=== PATIENT | female | born 1945 | race American Indian/Alaskan Native ===

== ENCOUNTER 2021-07-08 08:18 | Day surgery (SDC) | payer MEDICARE, OTHER ==
[~2021-07-08 08:18] MED LIST: SODIUM CHLORIDE 0.9% 1000 ML 1,000 ML IV SCH
[2021-07-08 09:46] LABS: Hematocrit 25.7 % (30.3-42.9); Hemoglobin 8.5 gm/dl (10.1-14.3); Mean Corpuscular HGB Conc 33 % (30-34); Mean Corpuscular Volume 95 fl (79-97); Platelet Count 181 K/mm3 (140-440); Red Blood Count 2.72 M/mm3 (3.65-5.03)
[2021-07-08 09:48] LABS: Red Cell Distribution Width 20.3 % (13.2-15.2)
[2021-07-08] MEDS ORDERED: propofoL 200 MG/20 ML VIAL IV ONE ×2 (09:54→09:55)
[2021-07-08] MEDS ORDERED: LIDOCAINE MPF (2%) 20 MG/1 ML VIAL 5 ML ONE (09:59)
--- NOTE | 2021-07-08 10:02 | Anesthesia Consultation ---
Anesthesia Consult and Med Hx Date of service: 07/08/21 - Airway Anesthetic Teeth Evaluation: Partials (upper and lower) ROM Head & Neck: Adequate Mental/Hyoid Distance: Adequate Mallampati Class: Class III Intubation Access Assessment: Possibly Difficult - Pre-Operative Health Status ASA Pre-Surgery Classification: ASA4 Proposed Anesthetic Plan: MAC - Pulmonary Hx Respiratory Symptoms: No COPD: Yes Home Oxygen Therapy: Yes (previously on home O2 but currently only uses while at HD) - Cardiovascular System Hx Hypertension: Yes Hx Heart Attack/AMI: No (hx CHF) Hx Percutaneous Transluminal Coronary Angioplasty (PTCA): No - Central Nervous System CVA: No - Endocrine Hx End Stage Renal Disease: Yes (last HD 07/07/21) Hx Liver Disease: No Hx Insulin Dependent Diabetes: Yes Hx Thyroid Disease: No - Hematic Hx Anemia: Yes - Other Systems Hx Obesity: No - Additional Comments Anesthesia Medical History Comments: No hx anesthetic complications. No signs/symptoms HF decompensation today. Reports that she was seen by quality assurance group leader prior to procedure and was given OK to proceed.
--- NOTE | 2021-07-08 10:02 | Anesthesia Day of Surgery ---
Anesthesia Day of Surgery - Day of Surgery Patient Examined: Yes Patient H&P Reviewed: Yes Patient is NPO: Yes
--- NOTE | 2021-07-08 10:45 | Short Stay Summary ---
Short Stay Documentation Date of service: 07/08/21 Narrative H&P: The patient is a 76 yo female her for diagnostic EGD for suspected UGI blood loss and screening colonoscopy due to hx of colon polyps in 2016. - History Past Medical History: diabetes, ESRD (On dialysis), heart failure, hypertension Past Surgical History: No surgical history, bowel surgery Social history: no significant social history - Allergies and Medications Current Medications: Allergies oxycodone Allergy (Verified 07/03/21 13:24) Unknown Home Medications Medication Instructions Recorded Confirmed Last Taken Type Aspirin [Adult Aspirin] 07/03/21 Unknown History AtorvaSTATin [Lipitor] 07/03/21 Unknown History Benzonatate [Tessalon Perles] 07/03/21 Unknown History Cyclopentolate 0.5% 07/03/21 Unknown History Fluticasone [Flonase] 07/03/21 Unknown History Gabapentin 07/03/21 Unknown History Levemir Flextouch 07/03/21 Unknown History NIFEdipine 07/03/21 Unknown History [place]-3 Fatty Acids/Fish Oil 07/03/21 Unknown History Phoslo 07/03/21 Unknown History ProAir HFA Inhaler 07/03/21 07/03/21 Unknown History Vitamin E 07/03/21 Unknown History Zinc Sulfate 07/03/21 Unknown History atenoloL 07/03/21 Unknown History Active Medications Sodium Chloride (Nacl 0.9% 1000 Ml) 1,000 mls @ 50 mls/hr IV DIRECT OLMAN - Physical exam General appearance: no acute distress, well-nourished Integumentary: no rash, no growths, no abnormal pigmentation HEENT: Atraumatic, PERRLA, EOMI, Mucous membr. moist/pink Lungs: Clear to auscultation, Normal air movement Breasts: deferred Heart: Regular rate, Normal S1, Normal S2, No murmurs Gastrointestinal: normoactive bowel sounds, no tenderness, no distended, no m asses, no guarding, no organomegaly, obese Female Genitourinary: deferred Rectal Exam: normal exam-external/orifice, no mass Extremities: no ischemia, pulses intact, pulses symmetrical, No edema, normal temperature, normal color, abnormal (left UE AV fistula) Neurological: Normal gait, Normal speech, Strength at 5/5 X4 ext, Normal tone, Sensation intact, Cranial nerves 3-12 NL - Brief post op/procedure progress note Date of procedure: 07/08/21 Procedure: see dictations Estimated blood loss: none Pathology: list (1. bxs of antral ulcer 2. transverse colon polyp 3. descending colon polyp.) Specimen disposition: to lab Condition: stable - Disposition Condition at discharge: Good Disposition: 01 HOME / SELF CARE / HOMELESS - Discharge Diagnoses (1) Anemia due to blood loss, chronic Status: Acute (2) History of colon polyps Status: Acute (3) ESRD (end stage renal disease) on dialysis Status: Acute Short Stay Discharge Plan Activity: other (no driving for 24 hours.) Weight Bearing Status: Weight Bear as Tolerated Diet: diabetic, renal Follow up with: DENISE CHENEY DO [Primary Care Provider] - 7 Days Prescriptions: Omeprazole 40 mg PO QAM 30 Days #30 capsule.
--- NOTE | 2021-07-08 10:54 | Operative Report ---
Operative Report Operative Report: Date of procedure: 07/08/2021 Preprocedure diagnosis: History of colon polyps Post procedure diagnosis: 1 cm pedunculated transverse colon polyp, 6 mm semisessile descending colon polyp. Mild diverticulosis. Status post right hemicolectomy. Procedure: Colonoscopy to the ileocecal anastomosis. Snare cautery polypectomy x2 Endoscopist: Dr. Nava Anesthesia: Monitored anesthesia care per anesthesia department Estimated blood loss: 0 Medications: Monitored anesthesia care. See separate report by anesthesia for details. After careful discussion of the nature and purpose of the procedure as well as details of the technique risks benefits and alternatives the patient gave consent. Please see recent history and physical from the office. The patient was placed in the left lateral decubitus position and medicated per anesthesia. A rectal exam was performed sphincter tone was normal there were no masses palpable. The [employer] 570 scope was passed transanally and advanced under continuous direct vision without difficulty to the ileocolonic anastomosis. The anastomosis appeared to be in the proximal transverse colon area. The colon was well prepared. There was a 1 cm pedunculated polyp present in the transverse colon which was removed with snare electrocautery without difficulty. The polyp was removed on the tip of the endoscope and then the scope was reintroduced back to the polyp site for further inspection of the distal colon. No bleeding was encountered. A 6 mm semisessile polyp was found in the descending colon which was removed with snare electrocautery and retrieved by suction through the endoscope channel. Scattered diverticula were noted in the descending and sigmoid colon which were otherwise normal. The rectum was normal on forward and retroflexed views. The procedure was well-tolerated overall and the patient was observed in recovery. Conclusions: #1. 1 cm transverse colon polyp #2. 6 mm descending colon polyp #3. Scattered left colon diverticula #4. Right hemicolectomy status. Plan: Await pathology. Follow-up colonoscopy as needed in light of her age unless there is advanced pathology. Signed electronically: Corey Nava M.D.
--- NOTE | 2021-07-08 10:57 | Operative Report ---
Operative Report Operative Report: Date of procedure: 07/08/2021 Procedure: Esophagogastroduodenoscopy with biopsies of an antral ulcer Preprocedure diagnosis: Anemia suspected to be from chronic blood loss. Post procedure diagnosis: 1 cm benign-appearing mid antral ulcer on the greater curvature. Endoscopist: Dr. Nava Anesthesia: Monitored anesthesia care per anesthesia department Medications: Propofol per anesthesia Estimated blood loss: Minimal After careful discussion of the nature and purpose of the procedure as well as details the technique risks benefits and alternatives consent was obtained. The patient was placed in the left lateral decubitus position and medicated per anesthesia. The tip of the [employer] EQ 570 video scope was passed per orum under direct vision into the esophagus and advanced into the stomach and descending duodenum. The descending duodenum the duodenal bulb and pylorus were symmetrical and normal. The scope was withdrawn into the stomach and the stomach then gently insufflated with air. The antrum was normal a 1 cm flat ulcer crater in the mid to lower third of the distal antrum. Biopsies were taken for histology. No significant bleeding was encountered. The stomach was further insufflated and the scope was then retroflexed and partially withdrawn. The cardia, fundus, and body of the stomach were within normal limits and easily distensible.The scope was then withdrawn in the forward position. The esophagogastric junction was at 38 cm. A small sliding hiatus hernia was noted. The esophageal body was normal throughout. The procedure was was well tolerated and the patient was observed in recovery. Impressions: 1 cm ulcer with benign features in the lower third of the antrum. Findings may account for the patient's anemia given dialysis and episodic anticoagulation for this purpose. Pathology pending. Small sliding hiatus hernia. Plan: Await pathology. Advised to withhold anticoagulation at dialysis tomorrow. Patient will call in 1 week for the pathology report. Begin omeprazole 40 mg daily. She may need therapy long-term Electronically signed: Corey Nava MD
--- NOTE | 2021-07-08 11:52 | Post Anesthesia Evaluation ---
- Post Anesthesia Evaluation Patient Participated: Yes Airway Patent: Yes Stable Respiratory Function: Yes Nausea/Vomiting: No Temp > 96.8F: Yes Pain Manageable: Yes Adequeate Hydration: Yes Anesthesia Complications: No
[2021-07-08 20:48] VITALS: BP 150/52
== END 2021-07-08 08:19 | disposition home or self-care (01) ==
LOC: GIO 08:18
PROVIDERS: ATTEND Internal Medicine Gastroenterology
DX: D50.0 Iron deficiency anemia secondary to blood loss (chronic) (principal); D12.3 Benign neoplasm of transverse colon; D12.4 Benign neoplasm of descending colon; K57.30 Diverticulosis of large intestine without perforation or abscess without bleeding; K63.89 Other specified diseases of intestine; K44.9 Diaphragmatic hernia without obstruction or gangrene; K29.50 Unspecified chronic gastritis without bleeding; K31.89 Other diseases of stomach and duodenum; J44.9 Chronic obstructive pulmonary disease, unspecified; I12.0 Hypertensive chronic kidney disease with stage 5 chronic kidney disease or end stage renal disease; N18.6 End stage renal disease; E11.22 Type 2 diabetes mellitus with diabetic chronic kidney disease; Z86.010 Personal history of colon polyps; Z79.84 Long term (current) use of oral hypoglycemic drugs; Z79.899 Other long term (current) drug therapy; Z98.890 Other specified postprocedural states; Z79.82 Long term (current) use of aspirin; Z88.8 Allergy status to other drugs, medicaments and biological substances
CPT/HCPCS: 36415; 43239; 45385; 82962; 85027; 88305; 88342; J2704; J7030

== ENCOUNTER 2021-11-10 14:52 | Inpatient (IN) | payer MEDICARE, OTHER ==
[2021-11-10] MEDS ORDERED: ACETAMINOPHEN 325 MG TAB PO ONE (15:23)
[2021-11-10] MEDS ORDERED: PANTOPRAZOLE 40 MG TAB PO ONE (15:23)
--- NOTE | 2021-11-10 15:23 | Emergency Department Report ---
ED General Adult HPI - General Chief complaint: GI Bleed Stated complaint: BLOOD IN STOOL PUI?: Yes Time Seen by Provider: 11/10/21 15:10 Source: patient, RN notes reviewed, old records reviewed Mode of arrival: Stretcher Limitations: No Limitations - History of Present Illness Initial comments: During the history and physical examination, I am chaperoned by Courtney Porter Patient is a 76-year-old female. She has a history of end-stage renal disease on hemodialysis. She is due for hemodialysis tomorrow. Her exhibit carpenter is Dr. Perry. Her biometrics analyst is Dr. Corey Metzger; she reports having had a colonoscopy within the past few months, reports having had polyps removed. She presents to the ER today with a complaint of left lower quadrant abdominal pain, and cramping. She believes that she is having bloody stool. She denies additional injuries and complaints. -: Gradual, hour(s) Location: abdomen Quality: aching Consistency: constant Improves with: rest Worsens with: medication, movement - Related Data Home Medications Medication Instructions Recorded Confirmed Last Taken AtorvaSTATin [Lipitor] 40 mg PO QHS 11/10/21 11/10/21 Unknown Calcium Acetate 667 mg PO DAILY 11/10/21 11/10/21 Unknown ISOSORBIDE MONOnitrate [Imdur ER] 60 mg PO QDAY 11/10/21 11/10/21 Unknown NIFEdipine [Nifedipine ER] 60 mg PO DAILY 11/10/21 11/10/21 Unknown Omeprazole 40 mg PO DAILY 11/10/21 11/10/21 Unknown Vitamin B Complex/Folic Acid [B 1 tab PO DAILY 11/10/21 11/10/21 Unknown Complex Formula #1 Tablet] Allergies Allergy/AdvReac Type Severity Reaction Status Date / Time oxycodone Allergy Unknown Verified 07/03/21 13:24 ED Review of Systems ROS: Stated complaint: BLOOD IN STOOL Other details as noted in HPI Constitutional: denies: fever Eyes: denies: eye discharge ENT: denies: epistaxis Respiratory: denies: cough Cardiovascular: denies: chest pain Gastrointestinal: abdominal pain, hematochezia Genitourinary: denies: dysuria Musculoskeletal: denies: back pain Neurological: weakness ED Past Medical Hx - Past Medical History Hx Hypertension: Yes Hx Heart Attack/AMI: No (hx CHF) Hx Liver Disease: No Hx COPD: Yes - Social History Smoking Status: Unknown if ever smoked - Medications Home Medications: Home Medications Medication Instructions Recorded Confirmed Last Taken Type AtorvaSTATin [Lipitor] 40 mg PO QHS 11/10/21 11/10/21 Unknown History Calcium Acetate 667 mg PO DAILY 11/10/21 11/10/21 Unknown History ISOSORBIDE MONOnitrate [Imdur ER] 60 mg PO QDAY 11/10/21 11/10/21 Unknown History NIFEdipine [Nifedipine ER] 60 mg PO DAILY 11/10/21 11/10/21 Unknown History Omeprazole 40 mg PO DAILY 11/10/21 11/10/21 Unknown History Vitamin B Complex/Folic Acid [B 1 tab PO DAILY 11/10/21 11/10/21 Unknown History Complex Formula #1 Tablet] ED Physical Exam - General Limitations: No Limitations General appearance: alert, in no apparent distress - Head Head exam: Present: atraumatic, normocephalic - Eye Eye exam: Present: EOMI. Absent: normal appearance (Cloudy cornea noted in the left eye), nystagmus - ENT ENT exam: Present: normal exam, normal orophraynx, mucous membranes moist, normal external ear exam - Neck Neck exam: Present: normal inspection, full ROM. Absent: tenderness, meningismus - Respiratory Respiratory exam: Present: normal lung sounds bilaterally. Absent: respiratory distress, wheezes, rales, rhonchi, stridor, decreased breath sounds - Cardiovascular Cardiovascular Exam: Present: regular rate, normal rhythm, normal heart sounds. Absent: bradycardia, tachycardia, irregular rhythm, systolic murmur, diastolic murmur, rubs, gallop - GI/Abdominal GI/Abdominal exam: Present: soft, tenderness, guarding. Absent: distended, rebound, rigid, pulsatile mass - Rectal Rectal exam: Present: normal inspection, normal rectal tone, other (Chaperoned by nurse Courtney Porter). Absent: bloody stool - Extremities Exam Extremities exam: Present: normal inspection, full ROM, other (2+ pulses noted in the bilateral upper and lower extremities. There is no palpable cord. negative Homans sign. Muscular compartments are soft. The pelvis is stable.). Absent: pedal edema, calf tenderness - Back Exam Back exam: Present: normal inspection. Absent: tenderness, CVA tenderness (R), CVA tenderness (L), paraspinal tenderness, vertebral tenderness - Neurological Exam Neurological exam: Present: alert, oriented X3, other (No facial droop. Tongue midline. Extraocular movements intact bilaterally. Facial sensation intact to light touch in V1, V2, V3 distribution bilaterally. 5 and a 5 strength in 4 extremities. Sensation intact to light touch in 4 extremities.) - Psychiatric Psychiatric exam: Present: normal affect, normal mood - Skin Skin exam: Present: warm, dry, intact, normal color, other (Left upper extremity fistula noted, without redness, pus or streaking. There is an appropriate thrill, and there is no tenderness.). Absent: rash ED Course Vital Signs 11/10/21 11/10/21 11/10/21 15:00 15:15 15:30 Temperature 98.6 F Pulse Rate 69 73 74 Respiratory 16 15 18 Rate Blood Pressure 144/44 168/54 168/54 Blood Pressure [Right] O2 Sat by Pulse 100 97 98 Oximetry 11/10/21 11/10/21 11/10/21 15:36 15:46 15:50 Temperature Pulse Rate 73 75 Respiratory 18 15 Rate Blood Pressure 168/54 Blood Pressure 168/54 [Right] O2 Sat by Pulse 100 92 100 Oximetry 11/10/21 11/10/21 11/10/21 16:00 16:16 16:32 Temperature Pulse Rate 74 76 71 Respiratory 17 20 Rate Blood Pressure 159/52 159/52 159/52 Blood Pressure [Right] O2 Sat by Pulse 96 86 97 Oximetry 11/10/21 11/10/21 11/10/21 16:46 17:00 17:16 Temperature Pulse Rate 76 74 74 Respiratory 15 17 18 Rate Blood Pressure 159/52 147/49 147/49 Blood Pressure [Right] O2 Sat by Pulse 93 96 96 Oximetry 11/10/21 11/10/21 17:30 17:46 Temperature Pulse Rate 75 73 Respiratory 18 13 Rate Blood Pressure 160/54 160/54 Blood Pressure [Right] O2 Sat by Pulse 91 79 L Oximetry - Reevaluation(s) Reevaluation #1: 11/10/21 17:45 Differential diagnosis, including but not limited to: Colitis, diverticulitis, perforated viscus, malignancy Assessment and plan: Elderly 76-year-old female who is on dialysis presenting w ith left lower quadrant abdominal pain, tenderness, found to have acute diverticulitis. Patient is relatively immune compromised, and elderly the age of 76, and is also found to have a white count of 17,000, likely secondary to her diverticulitis. Given advanced age and multiple medical comorbidities, have recommended admission to the medical service for supportive care, and antibiotics. Patient is agreeable to this plan of care. She is due for hemodialysis tomorrow. Have placed a page to her exhibit carpenter to arrange for hemodialysis. We will treat her with Levaquin and metronidazole. She was given acetaminophen for pain. She has no blood on my rectal examination. Contacted hematology lab, asked them to please results guaiac card that was sent out. 11/10/21 17:47 Anemia is chronic when compared to prior laboratory studies. This is likely anemia of chronic disease. 11/10/21 17:[address] Fulton - Consultations Consultation #1: 11/10/21 18:18 I discussed the patient's history, physical, laboratory studies imaging studies and clinical impression with covering nephrology, Dr. Davila. His group will follow in consultation and arrange for hemodialysis tomorrow ED Medical Decision Making - Lab Data Result diagrams: 11/10/21 15:36 11/10/21 15:36 Vital Signs 11/10/21 11/10/21 11/10/21 15:00 15:15 15:30 Temperature 98.6 F Pulse Rate 69 73 74 Respiratory 16 15 18 Rate Blood Pressure 144/44 168/54 168/54 Blood Pressure [Right] O2 Sat by Pulse 100 97 98 Oximetry 11/10/21 11/10/21 11/10/21 15:36 15:46 15:50 Temperature Pulse Rate 73 75 Respiratory 18 15 Rate Blood Pressure 168/54 Blood Pressure 168/54 [Right] O2 Sat by Pulse 100 92 100 Oximetry 11/10/21 11/10/21 11/10/21 16:00 16:16 16:32 Temperature Pulse Rate 74 76 71 Respiratory 17 20 Rate Blood Pressure 159/52 159/52 159/52 Blood Pressure [Right] O2 Sat by Pulse 96 86 97 Oximetry 11/10/21 16:46 Temperature Pulse Rate 76 Respiratory 15 Rate Blood Pressure 159/52 Blood Pressure [Right] O2 Sat by Pulse 93 Oximetry Lab Results 11/10/21 11/10/21 11/10/21 Range/Units 15:36 15:36 15:36 WBC 17.1 H (4.5-11.0) K/mm3 RBC 2.74 L (3.65-5.03) M/mm3 Hgb 8.7 L (10.1-14.3) gm/dl Hct 25.1 L (30.3-42.9) % MCV 92 (79-97) fl MCH 32 (28-32) pg MCHC 35 H (30-34) % RDW 19.5 H (13.2-15.2) % Plt Count 183 (140-440) K/mm3 [place] % (Auto) Account Services Representative PT 13.8 (12.2-14.9) Sec. INR 0.96 (0.87-1.13) APTT 38.8 H (24.2-36.6) Sec. Sodium 141 (137-145) mmol/L Potassium 3.9 (3.6-5.0) mmol/L Chloride 96.4 L (98-107) mmol/L Carbon Dioxide 28 (22-30) mmol/L Anion Gap 21 mmol/L BUN 38 H (7-17) mg/dL Creatinine 8.4 H (0.6-1.2) mg/dL Estimated GFR 6 ml/min BUN/Creatinine Ratio 5 % Glucose 90 (65-100) mg/dL Calcium 10.4 H (8.4-10.2) mg/dL Total Bilirubin 0.50 (0.1-1.2) mg/dL AST 17 (5-40) units/L ALT 12 (7-56) units/L Alkaline Phosphatase 102 (35-129) units/L Total Protein 7.1 (6.3-8.2) g/dL Albumin 4.6 (3.9-5) g/dL Albumin/Globulin Ratio 1.8 % - Radiology Data Radiology results: pending, report reviewed, image reviewed CT ABDOMEN AND PELVIS WITHOUT CONTRAST INDICATION / CLINICAL INFORMATION: Left- sided abdominal cramping, ESRD, history of GI. TECHNIQUE: Axial CT images were obtained through the abdomen and pelvis without IV contrast. All CT scans at this location are performed using CT dose reduction for ALARA by means of automated exposure control. COMPARISON: None available. FINDINGS: LOWER CHEST: Mild lower lobe bronchiectasis. AORTA / ARTERIES: Mild atherosclerotic calcification without acute abnormality. IVC / VEINS: No significant abnormali ty. LYMPH NODES: No significant adenopathy. COLON: Diverticular disease is noted of the sigmoid colon with peridiverticular inflammation. Post surgical change to the proximal colon. APPENDIX: Appendectomy. STOMACH / SMALL BOWEL: No significant abnormality. PERITONEUM: No free fluid. No free air. No fluid collection. LIVER: No significant abnormality. GALLBLADDER: Cholelithiasis. BILE DUCTS: No significant abnormality. PANCREAS: No significant abnormality. SPLEEN: No significant abnormality. ADRENALS: No significant abnormality. RIGHT KIDNEY / URETER: Atrophic appearing right kidney. Within the right kidney there is a 2.0 x 1.7 x 2.3 cm solid renal mass. LEFT KIDNEY / URETER: Punctate stone noted within the left kidney no hydronephrosis. URINARY BLADDER: No significant abnormality. REPRODUCTIVE ORGANS: Within the left adnexa there is a 4.4 cm lesion which demonstrates a focal calcification suggesting a dermoid cyst. Status post hysterectomy. Right adnexa is unremarkable.. SKELETAL SYSTEM: Scattered degeneration. ADDITIONAL FINDINGS: None. IMPRESSION: 1. Acute uncomplicated diverticulitis. 2. Left adnexal lesion suggesting a ovarian dermoid cyst. 3. Solid mass within the right kidney measuring up to 2.3 cm. Ultrasound can be obtained for further evaluation. 4. Other findings as above. Signer Name: Waldo Georges DO Signed: 11/10/2021 3:44 PM Workstation Name: [employer] Critical care attestation.: If time is entered above; I have spent that time in minutes in the direct care of this critically ill patient, excluding procedure time. ED Disposition Clinical Impression: ESRD (end stage renal disease) on dialysis, Acute diverticulitis Disposition: ADMITTED INPATIENT Is pt being admited?: Yes Does the pt Need Aspirin: No Condition: Stable Referrals: PRIMARY CARE, [Primary Care Provider] - 3-5 Days Forms: Accompanied Note
[2021-11-10 16:26] LABS: Hematocrit 25.1 % (30.3-42.9); Hemoglobin 8.7 gm/dl (10.1-14.3); Mean Corpuscular HGB Conc 35 % (30-34); Mean Corpuscular Volume 92 fl (79-97); Platelet Count 183 K/mm3 (140-440); Red Blood Count 2.74 M/mm3 (3.65-5.03); Red Cell Distribution Width 19.5 % (13.2-15.2)
[2021-11-10 16:40] LABS: INR 0.96 (0.87-1.13)
[2021-11-10 16:41] LABS: Partial Thromboplastin Time 38.8 Sec. (24.2-36.6)
[2021-11-10 16:47] LABS: Albumin 4.6 g/dL (3.9-5); Calcium 10.4 mg/dL (8.4-10.2)
--- NOTE | 2021-11-10 16:48 | Cat Scan Report ---
CT ABDOMEN AND PELVIS WITHOUT CONTRAST INDICATION / CLINICAL INFORMATION: Left-sided abdominal cramping, ESRD, history of GI. TECHNIQUE: Axial CT images were obtained through the abdomen and pelvis without IV contrast. All CT scans at this location are performed using CT dose reduction for ALARA by means of automated exposure control. COMPARISON: None available. FINDINGS: LOWER CHEST: Mild lower lobe bronchiectasis. AORTA / ARTERIES: Mild atherosclerotic calcification without acute abnormality. IVC / VEINS: No significant abnormality. LYMPH NODES: No significant adenopathy. COLON: Diverticular disease is noted of the sigmoid colon with peridiverticular inflammation. Post maya rgical change to the proximal colon. APPENDIX: Appendectomy. STOMACH / SMALL BOWEL: No significant abnormality. PERITONEUM: No free fluid. No free air. No fluid collection. LIVER: No significant abnormality. GALLBLADDER: Cholelithiasis. BILE DUCTS: No significant abnormality. PANCREAS: No significant abnormality. SPLEEN: No significant abnormality. ADRENALS: No significant abnormality. RIGHT KIDNEY / URETER: Atrophic appearing right kidney. Within the right kidney there is a 2.0 x 1.7 x 2.3 cm solid renal mass. LEFT KIDNEY / URETER: Punctate stone noted within the left kidney no hydronephrosis. URINARY BLADDER: No significant abnormality. REPRODUCTIVE ORGANS: Within the left adnexa there is a 4.4 cm lesion which demonstrates a focal calci fication suggesting a dermoid cyst. Status post hysterectomy. Right adnexa is unremarkable.. SKELETAL SYSTEM: Scattered degeneration. ADDITIONAL FINDINGS: None. IMPRESSION: 1. Acute uncomplicated diverticulitis. 2. Left adnexal lesion suggesting a ovarian dermoid cyst. 3. Solid mass within the right kidney measuring up to 2.3 cm. Ultrasound can be obtained for further evaluation. 4. Other findings as above. Signer Name: Waldo Georges DO Signed: 11/10/2021 4:44 PM Workstation Name: [id number]
[2021-11-10] MEDS ORDERED: metroNIDAZOLE 500 MG TAB PO ONE (17:37)
[2021-11-10] MEDS ORDERED: levoFLOXacin 500 MG TAB PO ONE (17:37)
[2021-11-10 18:18] LABS: Basophils % (Manual) 0 % (0.0-1.8); Total Cells Counted 100
[2021-11-10 18:19] LABS: RBC Morphology Normal
--- NOTE | 2021-11-10 18:27 | History and Physical Report ---
History of Present Illness Chief complaint: My stomach hurts and I have blood when I go to the bathroom History of present illness: 76 YO Female with HTN, GERD, HLD, ESRD on HD(T,R,Sa) presents ED for evaluation. Patient reports "my stomach hurts and I have some blood in my stool". Patient states that she has experienced crampy abdominal pain over the past 1 week with persistent and intermittent symptoms over the same timeframe. Patient also reports 2 episodes of blood in her stool over the past 1 week. Patient transported to [facility] via private vehicle for further care and evaluation of the aforementioned symptoms. The patient was seen and evaluated in the emergency department. All lab and imaging studies reviewed. Patient underwent CT scan of the abdomen and pelvis and was found to have evidence of acute diverticulitis complicated by sepsis. Patient admitted to medical floor and initiated on sepsis protocol. Patient denies fever, chills, chest pain, palpitation, productive cough, skin rash, recent contact, known exposure to COVID-19. No prior admission for review. All medication listed at time of admission has been reconciled. Advanced care planning conducted in ED. Nephrology team consulted in ED for dialysis. Past History Past Medical History: ESRD, GERD, hypertension, hyperlipidemia Past Surgical History: Other (Dialysis access) Social history: , lives with family. denies: smoking, alcohol abuse, prescription drug abuse Family history: hypertension Medications and Allergies Allergies Allergy/AdvReac Type Severity Reaction Status Date / Time oxycodone Allergy Unknown Verified 07/03/21 13:24 Home Medications Medication Instructions Recorded Confirmed Last Taken Type AtorvaSTATin [Lipitor] 40 mg PO QHS 11/10/21 11/10/21 Unknown History Calcium Acetate 667 mg PO DAILY 11/10/21 11/10/21 Unknown History ISOSORBIDE MONOnitrate [Imdur ER] 60 mg PO QDAY 11/10/21 11/10/21 Unknown History NIFEdipine [Nifedipine ER] 60 mg PO DAILY 11/10/21 11/10/21 Unknown History Omeprazole 40 mg PO DAILY 11/10/21 11/10/21 Unknown History Vitamin B Complex/Folic Acid [B 1 tab PO DAILY 11/10/21 11/10/21 Unknown History Complex Formula #1 Tablet] Review of Systems Constitutional: no weight loss, no weight gain, no fever, no chills Ears, nose, mouth and throat: no ear pain, no tinnitis, no nose pain, no nasal congestion, no nasal discharge Breasts: no change in shape, no swelling, no mass Cardiovascular: no chest pain, no orthopnea, no palpitations, no rapid/irregular heart beat, no edema Respiratory: no cough, no hemoptysis Gastrointestinal: abdominal pain, BRBPR, no nausea, no vomiting, no diarrhea Genitourinary Female: no pelvic pain, no flank pain, no dysuria, no urinary frequency, no urgency Rectal: no pain, no incontinence, no bleeding Musculoskeletal: no neck stiffness, no low back pain, no leg numbness/tingling, no redness of joints Integumentary: no rash, no pruritis, no wounds, no jaundice Neurological: no head injury, no weakness, no numbness, no seizures, no tremors Psychiatric: no anxiety, no change in sleep habits, no hypersomnia, no change in appetite, no change in libido Endocrine: no cold intolerance, no heat intolerance, no excessive thirst, no polydipsia Hematologic/Lymphatic: no easy bruising Allergic/Immunologic: no urticaria Exam - Constitutional Vitals: Temp Pulse Resp BP Pulse Ox 98.6 F 73 13 160/54 79 L 11/10/21 15:00 11/10/21 17:46 11/10/21 17:46 11/10/21 17:46 11/10/21 17:46 General appearance: Present: mild distress - EENT Eyes: Present: PERRL ENT: hearing intact, clear oral mucosa - Neck Neck: Present: supple, normal ROM - Respiratory Respiratory effort: normal Respiratory: bilateral: CTA - Cardiovascular Heart Sounds: Present: S1 & S2. Absent: rub, click - Extremities Extremities: pulses symmetrical, No edema Peripheral Pulses: within normal limits - Abdominal General gastrointestinal: Present: soft, non-tender, non-distended, normal bowel sounds Female genitourinary: Present: normal - Integumentary Integumentary: Present: clear, warm, dry - Musculoskeletal Musculoskeletal: gait normal, strength equal bilaterally - Psychiatric Psychiatric: appropriate mood/affect, intact judgment & insight - Neurologic Neurologic: CNII-XII intact, moves all extremities Results - Labs CBC & Chem 7: 11/10/21 15:36 11/10/21 15:36 Labs: Abnormal lab results 11/10/21 11/10/21 11/10/21 Range/Units 15:36 15:36 15:36 WBC 17.1 H (4.5-11.0) K/mm3 RBC 2.74 L (3.65-5.03) M/mm3 Hgb 8.7 L (10.1-14.3) gm/dl Hct 25.1 L (30.3-42.9) % MCHC 35 H (30-34) % RDW 19.5 H (13.2-15.2) % Monocytes % (Manual) 26.0 H (0.0-7.3) % Seg Neutrophils # Man 10.1 H (1.8-7.7) K/mm3 Monocytes # (Manual) 4.4 H (0.0-0.8) K/mm3 APTT 38.8 H (24.2-36.6) Sec. Chloride 96.4 L (98-107) mmol/L BUN 38 H (7-17) mg/dL Creatinine 8.4 H (0.6-1.2) mg/dL Calcium 10.4 H (8.4-10.2) mg/dL Assessment and Plan - Patient Problems (1) Sepsis Current Visit: Yes Status: Acute Plan to address problem: Sepsis protocol: CT scan abdomen and pelvis, IV fluid resuscitation therapy, IV antibiotic therapy, serial lactic acid level, maintain mean arterial pressure greater than or equal to 65, blood culture, (2) GERD (gastroesophageal reflux disease) Current Visit: Yes Status: Acute Qualifiers: Esophagitis presence: without esophagitis Qualified Code(s): K21.9 - Gastro-esophageal reflux disease without esophagitis Plan to address problem: PPI therapy, supportive care (3) Acute diverticulitis Current Visit: Yes Status: Acute Plan to address problem: CT scan abdomen pelvis, IV antibiotic therapy, supportive care, pain control. Serial abdominal exam. (4) ESRD (end stage renal disease) on dialysis Current Visit: Yes Status: Acute Plan to address problem: Nephrology team consulted in ED, dialysis as per renal team. (5) GI bleed Current Visit: Yes Status: Acute Plan to address problem: IV PPI therapy, supportive care. Patient found to be Hemoccult positive in the emergency department. Suspected secondary to acute diverticulitis. Supportive care, pain control. CT scan abdomen pelvis. Hemoglobin stable at this time. (6) Anemia due to blood loss, chronic Current Visit: No Status: Acute Plan to address problem: Hemoglobin stable. Monitor CBC. Repeat CBC in a.m. No transfusion at this time. Will consider blood transfusion if patient hemoglobin drops greater than 2 g in 24-hour period. (7) DVT prophylaxis Current Visit: Yes Status: Acute Plan to address problem: SCD to bilateral lower extremities while in bed, (8) Advance care planning Current Visit: Yes Status: Acute Plan to address problem: Disease education done, care plan discussed, diagnoses discussed, prognosis dis cussed, patient is full code. Patient knowledges understanding and agreement with care plan, +30 minutes.
[2021-11-10] MEDS ORDERED: ACETAMINOPHEN 325 MG TAB PO PRN ×2 (18:28)
[2021-11-10] MEDS ORDERED: MORPHINE 2 MG/1 ML INJ IV PRN (18:28)
[2021-11-10] MEDS ORDERED: SODIUM CHLORIDE 0.9% 1000 ML IV SOLN IV ONE (18:28)
[2021-11-10] MEDS ORDERED: ONDANSETRON 4 MG/2 ML INJ IV PRN (18:28)
[2021-11-10] MEDS ORDERED: HYDROmorphone 1 MG/1 ML INJ IV PRN ×2 (18:28)
[2021-11-10] MEDS ORDERED: ALBUTEROL 2.5 MG/3 ML NEBU IH PRN (18:28)
[2021-11-10] MEDS ORDERED: CEFEPIME/NS 2 GM/100 ML 2 GM/100 ML BAG IV SCH (19:00)
[2021-11-10] MEDS: metroNIDAZOLE/NS 500 MG/100 ML 500 MG/100 ML BAG IV SCH (19:38)
[2021-11-10] MEDS: CEFEPIME/NS 1 GM/100 ML 1 GM/100 ML BAG IV SCH (19:40)
[2021-11-10] MEDS ORDERED: SODIUM CHLORIDE 0.9% 100 ML IV PRN (23:18)
[2021-11-10] MEDS ORDERED: EPOETIN ALFA-EPBX 10,000 UNIT/1 ML VIAL IV PRN (23:19)
--- NOTE | 2021-11-10 23:19 | Event Note ---
Date: 11/10/21 Appreciate nephrology consult- patient receives HD for ESRD at [facility] . Official consult will follow, reviewed labs/vitals/notes, plan for HD tomorrow if stable
[2021-11-10] MEDS: PANTOPRAZOLE 40 MG INJ IV SCH (23:45)
[2021-11-11] MEDS: metroNIDAZOLE/NS 500 MG/100 ML 500 MG/100 ML BAG IV SCH ×3 (03:14→18:11)
[2021-11-11 07:58] LABS: Hematocrit 24.9 % (30.3-42.9); Hemoglobin 8.5 gm/dl (10.1-14.3); Mean Corpuscular HGB Conc 34 % (30-34); Mean Corpuscular Volume 92 fl (79-97); Platelet Count 158 K/mm3 (140-440); Red Cell Distribution Width 19.5 % (13.2-15.2)
[2021-11-11 08:17] LABS: Calcium 9.8 mg/dL (8.4-10.2)
--- NOTE | 2021-11-11 08:40 | Consultation ---
History of Present Illness - Reason for Consult Consult date: 11/11/21 end stage renal disease - History of Present Illness Mrs. Baron is a 76yo w/ ESRD on HD TTS who presented to ED upon direction of nephrology. Patient stopped by [facility] on Nov 10 to report a 1 day history of abdominal pain - lower quadrant, cramping pain followed by onset of BRBPR. Patient was advised to go to the ED for evaluation. In the ED, labs were collected and notable for Hb 8.7. Outpatient labs notable for Hb 9.4 on Oct 30. Patient receives HD TTS. Nephrology consulted for management of ESRD. Past History Past Medical History: ESRD, GERD, hypertension, hyperlipidemia Past Surgical History: Other (Dialysis access) Social history: , lives with family. denies: smoking, alcohol abuse, prescription drug abuse Family history: hypertension Medications and Allergies Allergies Allergy/AdvReac Type Severity Reaction Status Date / Time oxycodone Allergy Unknown Verified 07/03/21 13:24 Home Medications Medication Instructions Recorded Confirmed Last Taken Type AtorvaSTATin [Lipitor] 40 mg PO QHS 11/10/21 11/10/21 Unknown History Calcium Acetate 667 mg PO DAILY 11/10/21 11/10/21 Unknown History ISOSORBIDE MONOnitrate [Imdur ER] 60 mg PO QDAY 11/10/21 11/10/21 Unknown History NIFEdipine [Nifedipine ER] 60 mg PO DAILY 11/10/21 11/10/21 Unknown History Omeprazole 40 mg PO DAILY 11/10/21 11/10/21 Unknown History Vitamin B Complex/Folic Acid [B 1 tab PO DAILY 11/10/21 11/10/21 Unknown History Complex Formula #1 Tablet] Active Meds: Active Medications Acetaminophen (Acetaminophen 325 Mg Tab) 650 mg PO Q4H PRN PRN Reason: Pain MILD(1-3)/Fever >100.5/NICHOLSON Albuterol (Albuterol 2.5 Mg/3 Ml Nebu) 2.5 mg IH Q4HRT PRN PRN Reason: Shortness Of Breath Atorvastatin Calcium (Atorvastatin 40 Mg Tab) 40 mg PO QHS [facility] Last Admin: 11/10/21 23:50 Dose: Not Given Calcium Acetate (Calcium Acetate 667 Mg Cap) 667 mg PO DAILY@0800 [facility] Epoetin Aroldo-epbx (Epoetin Aroldo-Epbx 10,000 Unit/1 Ml Vial) 10,000 unit IV NAEEM PRN PRN Reason: hemodialysis Hydromorphone HCl (Hydromorphone 1 Mg/1 Ml Inj) 0.25 mg IV Q4H PRN PRN Reason: Pain, Moderate (4-6) Hydromorphone HCl (Hydromorphone 1 Mg/1 Ml Inj) 0.5 mg IV Q6H PRN PRN Reason: Pain , Severe (7-10) Last Admin: 11/11/21 00:20 Dose: 0.5 mg Metronidazole (Flagyl 500 Mg/100 Ml) 500 mg in 100 mls @ 100 mls/hr IV Q8H [facility]; Protocol Stop: 11/17/21 18:59 Last Admin: 11/11/21 03:14 Dose: 100 mls/hr Cefepime HCl (Cefepime/Ns 1 Gm/100 Ml) 1 gm in 100 mls @ 200 mls/hr IV Q24H [facility] Stop: 11/16/21 23:59 Last Admin: 11/10/21 19:40 Dose: Not Given Sodium Chloride (Nacl 0.9%) 100 mls @ 999 mls/hr IV NAEEM PRN PRN Reason: Hypotension Isosorbide Mononitrate (Isosorbide Mononitrate Er 60 Mg Tab) 60 mg PO QDAY [facility] Morphine Sulfate (Morphine 2 Mg/1 Ml Inj) 2 mg IV Q6H PRN PRN Reason: Pain, Moderate (4-6) Nifedipine (Nifedipine Xl 60 Mg Tab) 60 mg PO QDAY [facility] Ondansetron HCl (Ondansetron 4 Mg/2 Ml Inj) 4 mg IV Q8H PRN PRN Reason: Nausea And Vomiting Last Admin: 11/11/21 04:41 Dose: 4 mg Pantoprazole Sodium (Pantoprazole 40 Mg Inj) 40 mg IV BID [facility] Last Admin: 11/10/21 23:45 Dose: 40 mg Sodium Chloride (Sodium Chloride 0.9% 10 Ml Flush Syringe) 10 ml IV BID [facility] Last Admin: 11/10/21 23:50 Dose: 10 ml Sodium Chloride (Sodium Chloride 0.9% 10 Ml Flush Syringe) 10 ml IV PRN PRN PRN Reason: LINE FLUSH Vitamin B Complex/Vitamin C (B Complex W/Vitamin C Tab) 1 each PO QDAY [facility] Review of Systems All systems: negative Exam - Vital Signs Vital signs: Vital Signs Temp Pulse Resp BP Pulse Ox 98.6 F 69 16 144/44 100 11/10/21 15:00 11/10/21 15:00 11/10/21 15:00 11/10/21 15:00 11/10/21 15:00 - General Appearance General appearance: well-developed, well-nourished EENT: ATNC Respiratory: Clear to Ascultation Heart: regular, S1S2 Gastrointestinal: Present: normal, tenderness. Absent: distended Integumentary: no rash, warm and dry Neurologic: alert and oriented x3 Psychiatric: cooperative Results - Lab Results 11/11/21 07:28 11/11/21 07:22 Most recent lab results Calcium 9.8 mg/dL (8.4-10.2) 11/11/21 07:22 Assessment and Plan Impression: * End stage renal disease * GI bleed --Colonoscopy (Jun 2021 - Dr. Nava): 1 cm pedunculated transverse colon polyp, 6 mm semisessile descending colon polyp. Mild diverticulosis. Status post right hemicolectomy. * Diverticulitis * Anemia secondary to acute blood loss vs ESRD * Hypertension * Congestive heart failure (followed by [facility]) * Secondary hyperparathyroidism Plan: * Hemodialysis today - UF as tolerated * Abx per primary team - f/u blood cultures * Transfuse pRBC prn * GI consultation pending * Diet per GI * Dose medications for renal function * AM labs
[2021-11-11 08:41] LABS: Anisocytosis 1+; Basophils % (Manual) 0 % (0.0-1.8); Platelet Estimate Consistent w Auto; Total Cells Counted 100
--- NOTE | 2021-11-11 08:44 | Progress Note ---
Assessment and Plan Assessment and plan: 76 YO Female with HTN, GERD, HLD, ESRD on HD(T,R,Sa) presents ED for evaluation of GI bleed. Patient states that she has experienced crampy abdominal pain over the past 1 week with persistent and intermittent symptoms over the same timeframe. Patient also reports 2 episodes of blood in her stool over the past 1 week. The patient was seen and evaluated in the emergency department. All lab and imaging studies reviewed. Patient underwent CT scan of the abdomen and pelvis and was found to have evidence of acute diverticulitis complicated by sepsis. GI bleed Sepsis Acute diverticulitis ESRD Right kidney mass Ovarian dermoid cyst 11/11/2021. Patient will be continued on IV antibiotics. Await GI consultation. Patient reported rectal bleeding x1 last night. H&H remained stable. We will check renal ultrasound to further evaluate kidney mass. History Interval history: No new issues Hospitalist Physical - Constitutional Vitals: Temp Pulse Resp BP Pulse Ox 97.8 F 69 20 170/49 99 11/11/21 05:52 11/11/21 05:52 11/11/21 05:52 11/11/21 05:52 11/11/21 07:36 General appearance: Present: mild distress - EENT Eyes: Present: PERRL, EOM intact ENT: hearing intact, clear oral mucosa, dentition normal - Neck Neck: Present: supple, normal ROM - Respiratory Respiratory effort: normal Respiratory: bilateral: CTA - Cardiovascular Rhythm: regular Heart Sounds: Present: S1 & S2. Absent: gallop, rub - Extremities Extremities: no ischemia, No edema, Full ROM - Abdominal General gastrointestinal: soft, non-tender, non-distended, normal bowel sounds - Integumentary Integumentary: Present: clear, warm, dry - Neurologic Neurologic: CNII-XII intact, moves all extremities Results - Labs CBC & Chem 7: 11/11/21 07:28 11/11/21 07:22 Labs: Laboratory Last Values WBC 15.0 K/mm3 (4.5-11.0) H 11/11/21 07:28 RBC 2.70 M/mm3 (3.65-5.03) L 11/11/21 07:28 Hgb 8.5 gm/dl (10.1-14.3) L 11/11/21 07:28 Hct 24.9 % (30.3-42.9) L 11/11/21 07:28 MCV 92 fl (79-97) 11/11/21 07:28 MCH 31 pg (28-32) 11/11/21 07:28 MCHC 34 % (30-34) 11/11/21 07:28 RDW 19.5 % (13.2-15.2) H 11/11/21 07:28 Plt Count 158 K/mm3 (140-440) 11/11/21 07:28 [place] % (Auto) [employer] Specialist 11/11/21 07:28 Add Manual Diff Complete 11/10/21 15:36 Total Counted 100 11/10/21 15:36 Seg Neuts % (Manual) 59.0 % (40.0-70.0) 11/10/21 15:36 Band Neutrophils % 0 % 11/10/21 15:36 Lymphocytes % (Manual) 14.0 % (13.4-35.0) 11/10/21 15:36 Reactive Lymphs % (Man) 0 % 11/10/21 15:36 Monocytes % (Manual) 26.0 % (0.0-7.3) H 11/10/21 15:36 Eosinophils % (Manual) 1.0 % (0.0-4.3) 11/10/21 15:36 Basophils % (Manual) 0 % (0.0-1.8) 11/10/21 15:36 Metamyelocytes % 0 % 11/10/21 15:36 Myelocytes % 0 % 11/10/21 15:36 Promyelocytes % 0 % 11/10/21 15:36 Blast Cells % 0 % 11/10/21 15:36 Nucleated RBC % Not Reportable 11/10/21 15:36 Seg Neutrophils # Man 10.1 K/mm3 (1.8-7.7) H 11/10/21 15:36 Band Neutrophils # 0.0 K/mm3 11/10/21 15:36 Lymphocytes # (Manual) 2.4 K/mm3 (1.2-5.4) 11/10/21 15:36 Abs React Lymphs (Man) 0.0 K/mm3 11/10/21 15:36 Monocytes # (Manual) 4.4 K/mm3 (0.0-0.8) H 11/10/21 15:36 Eosinophils # (Manual) 0.2 K/mm3 (0.0-0.4) 11/10/21 15:36 Basophils # (Manual) 0.0 K/mm3 (0.0-0.1) 11/10/21 15:36 Metamyelocytes # 0.0 K/mm3 11/10/21 15:36 Myelocytes # 0.0 K/mm3 11/10/21 15:36 Promyelocytes # 0.0 K/mm3 11/10/21 15:36 Blast Cells # 0.0 K/mm3 11/10/21 15:36 WBC Morphology Not Reportable 11/10/21 15:36 Hypersegmented Neuts Not Reportable 11/10/21 15:36 Hyposegmented Neuts Not Reportable 11/10/21 15:36 Hypogranular Neuts Not Reportable 11/10/21 15:36 Smudge Cells Not Reportable 11/10/21 15:36 Toxic Granulation Not Reportable 11/10/21 15:36 Toxic Vacuolation Not Reportable 11/10/21 15:36 Dohle Bodies Not Reportable 11/10/21 15:36 Pelger-Huet Anomaly Not Reportable 11/10/21 15:36 Caitie Rods Not Reportable 11/10/21 15:36 Platelet Estimate Not Reportable 11/10/21 15:36 Clumped Platelets Not Reportable 11/10/21 15:36 Plt Clumps, EDTA Not Reportable 11/10/21 15:36 Large Platelets Not Reportable 11/10/21 15:36 Giant Platelets Not Reportable 11/10/21 15:36 Platelet Satelliting Not Reportable 11/10/21 15:36 Plt Morphology Comment Not Reportable 11/10/21 15:36 RBC Morphology Normal 11/10/21 15:36 Dimorphic RBCs Not Reportable 11/10/21 15:36 Polychromasia Not Reportable 11/10/21 15:36 Hypochromasia Not Reportable 11/10/21 15:36 Poikilocytosis Not Reportable 11/10/21 15:36 Anisocytosis Not Reportable 11/10/21 15:36 Microcytosis Not Reportable 11/10/21 15:36 Macrocytosis Not Reportable 11/10/21 15:36 Spherocytes Not Reportable 11/10/21 15:36 Pappenheimer Bodies Not Reportable 11/10/21 15:36 Sickle Cells Not Reportable 11/10/21 15:36 Target Cells Not Reportable 11/10/21 15:36 Tear Drop Cells Not Reportable 11/10/21 15:36 Ovalocytes Not Reportable 11/10/21 15:36 Helmet Cells Not Reportable 11/10/21 15:36 [place] Bodies Not Reportable 11/10/21 15:36 [place] Rings Not Reportable 11/10/21 15:36 Ballard Cells Not Reportable 11/10/21 15:36 Bite Cells Not Reportable 11/10/21 15:36 Crenated Cell Not Reportable 11/10/21 15:36 Elliptocytes Not Reportable 11/10/21 15:36 Acanthocytes (Spur) Not Reportable 11/10/21 15:36 Rouleaux Not Reportable 11/10/21 15:36 Hemoglobin C Crystals Not Reportable 11/10/21 15:36 Schistocytes Not Reportable 11/10/21 15:36 Malaria parasites Not Reportable 11/10/21 15:36 Jorge Bodies Not Reportable 11/10/21 15:36 Hem Pathologist Commnt No 11/10/21 15:36 PT 13.8 Sec. (12.2-14.9) 11/10/21 15:36 INR 0.96 (0.87-1.13) 11/10/21 15:36 APTT 38.8 Sec. (24.2-36.6) H 11/10/21 15:36 Sodium 136 mmol/L (137-145) L 11/11/21 07:22 Potassium 4.2 mmol/L (3.6-5.0) 11/11/21 07:22 Chloride 94.0 mmol/L (98-107) L 11/11/21 07:22 Carbon Dioxide 27 mmol/L (22-30) 11/11/21 07:22 Anion Gap 19 mmol/L 11/11/21 07:22 BUN 43 mg/dL (7-17) H 11/11/21 07:22 Creatinine 9.4 mg/dL (0.6-1.2) H 11/11/21 07:22 Estimated GFR 5 ml/min 11/11/21 07:22 BUN/Creatinine Ratio 5 % 11/11/21 07:22 Glucose 118 mg/dL (65-100) H 11/11/21 07:22 POC Glucose 106 mg/dL (70-105) H 11/11/21 07:43 Lactic Acid 0.70 mmol/L (0.7-2.0) 11/11/21 07:29 Calcium 9.8 mg/dL (8.4-10.2) 11/11/21 07:22 Total Bilirubin 0.50 mg/dL (0.1-1.2) 11/10/21 15:36 AST 17 units/L (5-40) 11/10/21 15:36 ALT 12 units/L (7-56) 11/10/21 15:36 Alkaline Phosphatase 102 units/L (35-129) 11/10/21 15:36 Total Protein 7.1 g/dL (6.3-8.2) 11/10/21 15:36 Albumin 4.6 g/dL (3.9-5) 11/10/21 15:36 Albumin/Globulin Ratio 1.8 % 11/10/21 15:36 Blood Type O POSITIVE 11/10/21 15:36 Antibody Screen Positive 11/10/21 15:36 MOLLY Antibody Screen Negative 11/10/21 15:36 Antibody Identification Negative 11/10/21 15:36 Direct Antiglob Test Positive 11/10/21 15:36 KATHLEEN, Poly Interpret Positive 11/10/21 15:36 Microbiology: Microbiology 11/10/21 21:18 Peripheral/Venous Blood Culture - Preliminary Culture in Progress 11/10/21 21:18 Peripheral/Venous Blood Culture - Preliminary Culture in Progress 11/10/21 15:22 Stool - Stool Aspirate Stool Occult Blood (TERRY) - Final [place]/IV: Voiding Method Toilet Active Medications - Current Medications Current Medications: Generic Name Dose Route Start Last Admin Trade Name Freq PRN Reason Stop Dose Admin Acetaminophen 650 mg 11/10/21 18:28 Acetaminophen 325 Mg Tab PO Q4H PRN Pain MILD(1-3)/Fever >100.5/NICHOLSON Albuterol 2.5 mg 11/10/21 18:28 Albuterol 2.5 Mg/3 Ml Nebu IH Q4HRT PRN Shortness Of Breath Atorvastatin Calcium 40 mg 11/10/21 22:00 11/10/21 23:50 Atorvastatin 40 Mg Tab PO Not Given QHS [facility] Calcium Acetate 667 mg 11/11/21 08:00 Calcium Acetate 667 Mg Cap PO DAILY@0800 [facility] Epoetin Aroldo-epbx 10,000 unit 11/10/21 23:19 Epoetin Aroldo-Epbx 10,000 Unit/1 Ml Vial IV NAEEM PRN hemodialysis Hydromorphone HCl 0.25 mg 11/10/21 18:28 Hydromorphone 1 Mg/1 Ml Inj IV Q4H PRN Pain, Moderate (4-6) Hydromorphone HCl 0.5 mg 11/10/21 18:28 11/11/21 00:20 Hydromorphone 1 Mg/1 Ml Inj IV 0.5 mg Q6H PRN Administration Pain , Severe (7-10) Metronidazole 500 mg in 100 mls @ 100 mls/hr 11/10/21 19:00 11/11/21 03:14 Flagyl 500 Mg/100 Ml IV 11/17/21 18:59 100 mls/hr Q8H [facility] Administration Protocol Cefepime HCl 1 gm in 100 mls @ 200 mls/hr 11/10/21 20:00 11/10/21 19:40 Cefepime/Ns 1 Gm/100 Ml IV 11/16/21 23:59 Not Given Q24H [facility] Sodium Chloride 100 mls @ 999 mls/hr 11/10/21 23:18 Nacl 0.9% IV NAEEM PRN Hypotension Isosorbide Mononitrate 60 mg 11/11/21 10:00 Isosorbide Mononitrate Er 60 Mg Tab PO QDAY [facility] Morphine Sulfate 2 mg 11/10/21 18:28 Morphine 2 Mg/1 Ml Inj IV Q6H PRN Pain, Moderate (4-6) Nifedipine 60 mg 11/11/21 10:00 Nifedipine Xl 60 Mg Tab PO QDAY [facility] Ondansetron HCl 4 mg 11/10/21 18:28 11/11/21 04:41 Ondansetron 4 Mg/2 Ml Inj IV 4 mg Q8H PRN Administration Nausea And Vomiting Pantoprazole Sodium 40 mg 11/10/21 22:00 11/10/21 23:45 Pantoprazole 40 Mg Inj IV 40 mg BID [facility] Administration Sodium Chloride 10 ml 11/10/21 22:00 11/10/21 23:50 Sodium Chloride 0.9% 10 Ml Flush Syringe IV 10 ml BID [facility] Administration Sodium Chloride 10 ml 11/10/21 18:28 Sodium Chloride 0.9% 10 Ml Flush Syringe IV PRN PRN LINE FLUSH Vitamin B Complex/Vitamin C 1 each 11/11/21 10:00 B Complex W/Vitamin C Tab PO QDAY [facility]
[2021-11-11] MEDS: PANTOPRAZOLE 40 MG INJ IV SCH ×2 (09:08→21:12)
[2021-11-11] MEDS: CALCIUM ACETATE 667 MG CAP PO SCH (09:08)
[2021-11-11] MEDS ORDERED: VITAMIN B COMPLEX PO SCH (10:00)
[2021-11-11] MEDS ORDERED: FOLIC ACID PO SCH (10:00)
[2021-11-11] MEDS ORDERED: [UNRECOGNIZED DRUG - OTHER] PO SCH (10:00)
[2021-11-11] MEDS ORDERED: NON-FORMULARY EACH (Nifedipine [Nifedipine Er] 60 MG Tablet.Er) PO SCH (10:00)
[2021-11-11] MEDS ORDERED: NON-FORMULARY EACH (Calcium Acetate [Calcium Acetate] 667 MG Tablet) PO SCH (10:00)
[2021-11-11] MEDS ORDERED: B COMPLEX W/VITAMIN C TAB PO SCH (10:00)
[2021-11-11 12:03] LABS: Hepatitis B Surface Antigen Non-Reactive (Negative); Hepatitis C Virus Antibody Non-Reactive (NonReactive)
[2021-11-11] MEDS: NIFEdipine XL 60 MG TAB PO SCH (13:00)
--- NOTE | 2021-11-11 16:46 | Gastroenterology Consultation ---
History of Present Illness - Reason for Consult Consult date: 11/11/21 diverticulitis Requesting physician: HEATHER PRITCHETT - History of Present Illness This is a 76 yo female with pmh of HTN, GERD, HLD, ESRD on HD and antral ulcer hx admitted for abdominal pain. Reports having LLQ pain for past 1 week with intermittent episodes. Also complains of episodes of blood in her stools after having constipation for some time. No melena or diarrhea. Patient recent had EGD/colonoscopy in 06/[address] Nava. Colonoscopy showed multiple colon polyps, left diverticulosis, and right hemicolectomy status. EGD showed benign appearing ulcer. CT on 11/10/2021 showed acute uncomplicated diverticulitis. Medication list reviewed. Past History Past Medical History: ESRD, GERD, hypertension, hyperlipidemia Past Surgical History: Other (Dialysis access) Social history: , lives with family. denies: smoking, alcohol abuse, prescription drug abuse Family history: hypertension Medications and Allergies Allergies Allergy/AdvReac Type Severity Reaction Status Date / Time oxycodone Allergy Unknown Verified 07/03/21 13:24 Home Medications Medication Instructions Recorded Confirmed Last Taken Type AtorvaSTATin [Lipitor] 40 mg PO QHS 11/10/21 11/10/21 Unknown History Calcium Acetate 667 mg PO DAILY 11/10/21 11/10/21 Unknown History ISOSORBIDE MONOnitrate [Imdur ER] 60 mg PO QDAY 11/10/21 11/10/21 Unknown History NIFEdipine [Nifedipine ER] 60 mg PO DAILY 11/10/21 11/10/21 Unknown History Omeprazole 40 mg PO DAILY 11/10/21 11/10/21 Unknown History Vitamin B Complex/Folic Acid [B 1 tab PO DAILY 11/10/21 11/10/21 Unknown History Complex Formula #1 Tablet] Active Meds: Active Medications Acetaminophen (Acetaminophen 325 Mg Tab) 650 mg PO Q4H PRN PRN Reason: Pain MILD(1-3)/Fever >100.5/NICHOLSON Albuterol (Albuterol 2.5 Mg/3 Ml Nebu) 2.5 mg IH Q4HRT PRN PRN Reason: Shortness Of Breath Atorvastatin Calcium (Atorvastatin 40 Mg Tab) 40 mg PO QHS OLMAN Last Admin: 11/10/21 23:50 Dose: Not Given Calcium Acetate (Calcium Acetate 667 Mg Cap) 667 mg PO DAILY@0800 [facility] Last Admin: 11/11/21 09:08 Dose: 667 mg Epoetin Aroldo-epbx (Epoetin Aroldo-Epbx 10,000 Unit/1 Ml Vial) 10,000 unit IV NAEEM PRN PRN Reason: hemodialysis Hydromorphone HCl (Hydromorphone 1 Mg/1 Ml Inj) 0.25 mg IV Q4H PRN PRN Reason: Pain, Moderate (4-6) Hydromorphone HCl (Hydromorphone 1 Mg/1 Ml Inj) 0.5 mg IV Q6H PRN PRN Reason: Pain , Severe (7-10) Last Admin: 11/11/21 00:20 Dose: 0.5 mg Metronidazole (Flagyl 500 Mg/100 Ml) 500 mg in 100 mls @ 100 mls/hr IV Q8H [facility]; Protocol Stop: 11/17/21 18:59 Last Admin: 11/11/21 11:52 Dose: 100 mls/hr Cefepime HCl (Cefepime/Ns 1 Gm/100 Ml) 1 gm in 100 mls @ 200 mls/hr IV Q24H [facility] Stop: 11/16/21 23:59 Last Admin: 11/10/21 19:40 Dose: Not Given Sodium Chloride (Nacl 0.9%) 100 mls @ 999 mls/hr IV NAEEM PRN PRN Reason: Hypotension Isosorbide Mononitrate (Isosorbide Mononitrate Er 60 Mg Tab) 60 mg PO QDAY [facility] Morphine Sulfate (Morphine 2 Mg/1 Ml Inj) 2 mg IV Q6H PRN PRN Reason: Pain, Moderate (4-6) Nifedipine (Nifedipine Xl 60 Mg Tab) 60 mg PO QDAY [facility] Last Admin: 11/11/21 13:00 Dose: 60 mg Ondansetron HCl (Ondansetron 4 Mg/2 Ml Inj) 4 mg IV Q8H PRN PRN Reason: Nausea And Vomiting Last Admin: 11/11/21 04:41 Dose: 4 mg Pantoprazole Sodium (Pantoprazole 40 Mg Inj) 40 mg IV BID [facility] Last Admin: 11/11/21 09:08 Dose: 40 mg Sodium Chloride (Sodium Chloride 0.9% 10 Ml Flush Syringe) 10 ml IV BID [facility] Last Admin: 11/11/21 09:09 Dose: 10 ml Sodium Chloride (Sodium Chloride 0.9% 10 Ml Flush Syringe) 10 ml IV PRN PRN PRN Reason: LINE FLUSH Vitamin B Complex/Vitamin C (B Complex W/Vitamin C Tab) 1 each PO QDAY OLMAN Last Admin: 11/11/21 09:08 Dose: 1 each Review of Systems - Review of Systems All systems: negative Constitutional: no weight loss, no weight gain, no fever, no chills Eyes: no change in vision Cardiovascular: no chest pain Gastrointestinal: abdominal pain, nausea, BRBPR, hematochezia, no melena, no loss of appetite, no early satiety, no heartburn Neurological: no weakness Psychiatric: no anxiety Hematologic/Lymphatic: no easy bruising Allergic/Immunologic: no wheezing Exam - Constitutional Vital Signs: Temp Pulse Resp BP Pulse Ox 97.8 F 69 20 154/62 100 11/11/21 12:50 11/11/21 15:15 11/11/21 12:50 11/11/21 15:15 11/11/21 12:50 General appearance: no acute distress - EENT Eyes: EOM intact ENT: hearing intact - Neck Neck: supple - Respiratory Respiratory effort: normal - Cardiovascular Rhythm: regular Heart Sounds: Present: S1 & S2 - Gastrointestinal General gastrointestinal: Present: soft, tender, non-distended - Integumentary Integumentary: Present: clear, warm - Neurologic Neurological: alert and oriented x3 - Psychiatric Psychiatric: appropriate mood/affect - Labs CBC & Chem 7: 11/11/21 07:28 11/11/21 07:22 Lab Results: Laboratory Results - last 24 hr 11/10/21 11/10/21 11/10/21 15:36 15:36 15:36 WBC RBC Hgb Hct MCV MCH MCHC RDW Plt Count [place] % (Auto) Add Manual Diff Complete Total Counted 100 Seg Neuts % (Manual) 59.0 Band Neutrophils % 0 Lymphocytes % (Manual) 14.0 Reactive Lymphs % (Man) 0 Monocytes % (Manual) 26.0 H Eosinophils % (Manual) 1.0 Basophils % (Manual) 0 Metamyelocytes % 0 Myelocytes % 0 Promyelocytes % 0 Blast Cells % 0 Nucleated RBC % Not Reportable Seg Neutrophils # Man 10.1 H Band Neutrophils # 0.0 Lymphocytes # (Manual) 2.4 Abs React Lymphs (Man) 0.0 Monocytes # (Manual) 4.4 H Eosinophils # (Manual) 0.2 Basophils # (Manual) 0.0 Metamyelocytes # 0.0 Myelocytes # 0.0 Promyelocytes # 0.0 Blast Cells # 0.0 WBC Morphology Not Reportable Hypersegmented Neuts Not Reportable Hyposegmented Neuts Not Reportable Hypogranular Neuts Not Reportable Smudge Cells Not Reportable Toxic Granulation Not Reportable Toxic Vacuolation Not Reportable Dohle Bodies Not Reportable Pelger-Huet Anomaly Not Reportable Caitie Rods Not Reportable Platelet Estimate Not Reportable Clumped Platelets Not Reportable Plt Clumps, EDTA Not Reportable Large Platelets Not Reportable Giant Platelets Not Reportable Platelet Satelliting Not Reportable Plt Morphology Comment Not Reportable RBC Morphology Normal Dimorphic RBCs Not Reportable Polychromasia Not Reportable Hypochromasia Not Reportable Poikilocytosis Not Reportable Anisocytosis Not Reportable Microcytosis Not Reportable Macrocytosis Not Reportable Spherocytes Not Reportable Pappenheimer Bodies Not Reportable Sickle Cells Not Reportable Target Cells Not Reportable Tear Drop Cells Not Reportable Ovalocytes Not Reportable Helmet Cells Not Reportable [place] Bodies Not Reportable Campus Rings Not Reportable Josias Cells Not Reportable Bite Cells Not Reportable Crenated Cell Not Reportable Elliptocytes Not Reportable Acanthocytes (Spur) Not Reportable Rouleaux Not Reportable Hemoglobin C Crystals Not Reportable Schistocytes Not Reportable Malaria parasites Not Reportable Jorge Bodies Not Reportable Hem Pathologist Commnt No Sodium 141 Potassium 3.9 Chloride 96.4 L Carbon Dioxide 28 Anion Gap 21 BUN 38 H Creatinine 8.4 H Estimated GFR 6 BUN/Creatinine Ratio 5 Glucose 90 POC Glucose Lactic Acid Calcium 10.4 H Total Bilirubin 0.50 AST 17 ALT 12 Alkaline Phosphatase 102 Total Protein 7.1 Albumin 4.6 Albumin/Globulin Ratio 1.8 Hepatitis A IgM Ab Hep Bs Antigen Hep B Core IgM Ab Hepatitis C Antibody Blood Type O POSITIVE Antibody Screen Positive MOLLY Antibody Screen Negative Antibody Identification Negative Direct Antiglob Test Positive KATHLEEN, Poly Interpret Positive 11/10/21 11/10/21 11/11/21 21:18 23:22 07:22 WBC RBC Hgb Hct MCV MCH MCHC RDW Plt Count [place] % (Auto) Add Manual Diff Total Counted Seg Neuts % (Manual) Band Neutrophils % Lymphocytes % (Manual) Reactive Lymphs % (Man) Monocytes % (Manual) Eosinophils % (Manual) Basophils % (Manual) Metamyelocytes % Myelocytes % Promyelocytes % Blast Cells % Nucleated RBC % Seg Neutrophils # Man Band Neutrophils # Lymphocytes # (Manual) Abs React Lymphs (Man) Monocytes # (Manual) Eosinophils # (Manual) Basophils # (Manual) Metamyelocytes # Myelocytes # Promyelocytes # Blast Cells # WBC Morphology Hypersegmented Neuts Hyposegmented Neuts Hypogranular Neuts Smudge Cells Toxic Granulation Toxic Vacuolation Dohle Bodies Pelger-Huet Anomaly Caitie Rods Platelet Estimate Clumped Platelets Plt Clumps, EDTA Large Platelets Giant Platelets Platelet Satelliting Plt Morphology Comment RBC Morphology Dimorphic RBCs Polychromasia Hypochromasia Poikilocytosis Anisocytosis Microcytosis Macrocytosis Spherocytes Pappenheimer Bodies Sickle Cells Target Cells Tear Drop Cells Ovalocytes Helmet Cells [place] Bodies Campus Rings [place] Cells Bite Cells Crenated Cell Elliptocytes Acanthocytes (Spur) Rouleaux Hemoglobin C Crystals Schistocytes Malaria parasites Jorge Bodies Hem Pathologist Commnt Sodium 136 L Potassium 4.2 Chloride 94.0 L Carbon Dioxide 27 Anion Gap 19 BUN 43 H Creatinine 9.4 H Estimated GFR 5 BUN/Creatinine Ratio 5 Glucose 118 H POC Glucose 148 H Lactic Acid 1.00 Calcium 9.8 Total Bilirubin AST ALT Alkaline Phosphatase Total Protein Albumin Albumin/Globulin Ratio Hepatitis A IgM Ab Hep Bs Antigen Hep B Core IgM Ab Hepatitis C Antibody Blood Type Antibody Screen MOLLY Antibody Screen Antibody Identification Direct Antiglob Test KATHLEEN, Poly Interpret 11/11/21 11/11/21 11/11/21 07:28 07:29 07:43 WBC 15.0 H RBC 2.70 L Hgb 8.5 L Hct 24.9 L MCV 92 MCH 31 MCHC 34 RDW 19.5 H Plt Count 158 [place] % (Auto) [employer] Supervisor Add Manual Diff Complete Total Counted 100 Seg Neuts % (Manual) 69.0 Band Neutrophils % 0 Lymphocytes % (Manual) 10.0 L Reactive Lymphs % (Man) 0 Monocytes % (Manual) 19.0 H Eosinophils % (Manual) 2.0 Basophils % (Manual) 0 Metamyelocytes % 0 Myelocytes % 0 Promyelocytes % 0 Blast Cells % 0 Nucleated RBC % Not Reportable Seg Neutrophils # Man 10.4 H Band Neutrophils # 0.0 Lymphocytes # (Manual) 1.5 Abs React Lymphs (Man) 0.0 Monocytes # (Manual) 2.9 H Eosinophils # (Manual) 0.3 Basophils # (Manual) 0.0 Metamyelocytes # 0.0 Myelocytes # 0.0 Promyelocytes # 0.0 Blast Cells # 0.0 WBC Morphology Not Reportable Hypersegmented Neuts Not Reportable Hyposegmented Neuts Not Reportable Hypogranular Neuts Not Reportable Smudge Cells Not Reportable Toxic Granulation Not Reportable Toxic Vacuolation Not Reportable Dohle Bodies Not Reportable Pelger-Huet Anomaly Not Reportable Caitie Rods Not Reportable Platelet Estimate Consistent w auto Clumped Platelets Not Reportable Plt Clumps, EDTA Not Reportable Large Platelets Not Reportable Giant Platelets Not Reportable Platelet Satelliting Not Reportable Plt Morphology Comment Not Reportable RBC Morphology Not Reportable Dimorphic RBCs Not Reportable Polychromasia Not Reportable Hypochromasia Not Reportable Poikilocytosis Not Reportable Anisocytosis 1+ Microcytosis Not Reportable Macrocytosis Not Reportable Spherocytes Not Reportable Pappenheimer Bodies Not Reportable Sickle Cells Not Reportable Target Cells Not Reportable Tear Drop Cells Not Reportable Ovalocytes Not Reportable Helmet Cells Not Reportable [place] Bodies Not Reportable Campus Rings Not Reportable Josias Cells Not Reportable Bite Cells Not Reportable Crenated Cell Not Reportable Elliptocytes Not Reportable Acanthocytes (Spur) Not Reportable Rouleaux Not Reportable Hemoglobin C Crystals Not Reportable Schistocytes Not Reportable Malaria parasites Not Reportable Jorge Bodies Not Reportable Hem Pathologist Commnt No Sodium Potassium Chloride Carbon Dioxide Anion Gap BUN Creatinine Estimated GFR BUN/Creatinine Ratio Glucose POC Glucose 106 H Lactic Acid 0.70 Calcium Total Bilirubin AST ALT Alkaline Phosphatase Total Protein Albumin Albumin/Globulin Ratio Hepatitis A IgM Ab Hep Bs Antigen Hep B Core IgM Ab Hepatitis C Antibody Blood Type Antibody Screen MOLLY Antibody Screen Antibody Identification Direct Antiglob Test KATHLEEN, Poly Interpret 11/11/21 11/11/21 07:45 11:55 WBC RBC Hgb Hct MCV MCH MCHC RDW Plt Count [place] % (Auto) Add Manual Diff Total Counted Seg Neuts % (Manual) Band Neutrophils % Lymphocytes % (Manual) Reactive Lymphs % (Man) Monocytes % (Manual) Eosinophils % (Manual) Basophils % (Manual) Metamyelocytes % Myelocytes % Promyelocytes % Blast Cells % Nucleated RBC % Seg Neutrophils # Man Band Neutrophils # Lymphocytes # (Manual) Abs React Lymphs (Man) Monocytes # (Manual) Eosinophils # (Manual) Basophils # (Manual) Metamyelocytes # Myelocytes # Promyelocytes # Blast Cells # WBC Morphology Hypersegmented Neuts Hyposegmented Neuts Hypogranular Neuts Smudge Cells Toxic Granulation Toxic Vacuolation Dohle Bodies Pelger-Huet Anomaly Caitie Rods Platelet Estimate Clumped Platelets Plt Clumps, EDTA Large Platelets Giant Platelets Platelet Satelliting Plt Morphology Comment RBC Morphology Dimorphic RBCs Polychromasia Hypochromasia Poikilocytosis Anisocytosis Microcytosis Macrocytosis Spherocytes Pappenheimer Bodies Sickle Cells Target Cells Tear Drop Cells Ovalocytes Helmet Cells [place] Bodies Campus Rings Josias Cells Bite Cells Crenated Cell Elliptocytes Acanthocytes (Spur) Rouleaux Hemoglobin C Crystals Schistocytes Malaria parasites Jorge Bodies Hem Pathologist Commnt Sodium Potassium Chloride Carbon Dioxide Anion Gap BUN Creatinine Estimated GFR BUN/Creatinine Ratio Glucose POC Glucose 177 H Lactic Acid Calcium Total Bilirubin AST ALT Alkaline Phosphatase Total Protein Albumin Albumin/Globulin Ratio Hepatitis A IgM Ab Non-reactive Hep Bs Antigen Non-reactive Hep B Core IgM Ab Non-reactive Hepatitis C Antibody Non-reactive Blood Type Antibody Screen MOLLY Antibody Screen Antibody Identification Direct Antiglob Test KATHLEEN, Poly Interpret - Imaging CT Scan: report reviewed Assessment and Plan # Acute sigmoid diverticulitis - CT on 11/10/2021 showed acute uncomplicated diverticulitis. - wbc trending down from 17 to 15. - clinically improving. - trial of clear liquid - cont with empiric antibiotics.
[2021-11-11] MEDS: CEFEPIME/NS 1 GM/100 ML 1 GM/100 ML BAG IV SCH (20:50)
[2021-11-12] MEDS: metroNIDAZOLE/NS 500 MG/100 ML 500 MG/100 ML BAG IV SCH ×2 (03:47→11:51)
[2021-11-12 06:45] VITALS: BP 150/41
[2021-11-12] MEDS ORDERED: PANTOPRAZOLE 40 MG TAB PO SCH (08:00)
--- NOTE | 2021-11-12 08:48 | Progress Note ---
Assessment and Plan Impression: * End stage renal disease * GI bleed --Colonoscopy (Jun 2021 - Dr. Nava): 1 cm pedunculated transverse colon polyp, 6 mm semisessile descending colon polyp. Mild diverticulosis. Status post right hemicolectomy. * Diverticulitis * Anemia secondary to acute blood loss vs ESRD * Hypertension * Congestive heart failure (followed by [facility]) * Secondary hyperparathyroidism Plan: * No acute need for hemodialysis today * Continue TTS schedule - UF as tolerated * Abx per primary team - blood cultures NGTD, WBC trending down * Transfuse pRBC prn * GI consultation pending * Diet per GI - note trial of po intake,liquid diet * Dose medications for renal function * AM labs Subjective Date of service: 11/12/21 Interval history: Reports abdominal pain improved. Reports stool today - no blood Objective - Vital Signs Vital signs: Vital Signs - 12hr 11/12/21 11/12/21 04:14 07:00 Temperature 98.4 F Pulse Rate 65 Respiratory 18 Rate Blood Pressure 150/41 O2 Sat by Pulse 95 100 Oximetry - General Appearance General appearance: well-developed, well-nourished EENT: ATNC Respiratory: Present: Clear to Ascultation Cardiology: regular, S1S2 Gastrointestinal: normal, no tenderness, no distended Integumentary: no rash, cool/clammy Neurologic: no focal deficit, alert and oriented x3 Psychiatric: cooperative - Lab 11/11/21 07:28 11/11/21 07:22 Most recent lab results Calcium 9.8 mg/dL (8.4-10.2) 11/11/21 07:22 Medications & Allergies - Medications Allergies/Adverse Reactions: Allergies oxycodone Allergy (Verified 11/12/21 12:05) Unknown patient is not aware of this allergy Home Medications: Home Medications Medication Instructions Recorded Confirmed Last Taken Type AtorvaSTATin [Lipitor] 40 mg PO QHS 11/10/21 11/10/21 Unknown History Calcium Acetate 667 mg PO DAILY 11/10/21 11/10/21 Unknown History ISOSORBIDE MONOnitrate [Imdur ER] 60 mg PO QDAY 11/10/21 11/10/21 Unknown History NIFEdipine [Nifedipine ER] 60 mg PO BID 11/10/21 11/12/21 Unknown History Omeprazole 40 mg PO QDAC 11/10/21 11/12/21 Unknown History Vitamin B Complex/Folic Acid [B 1 tab PO BID 11/10/21 11/12/21 Unknown History Complex Formula #1 Tablet] Acetaminophen [Non-Aspirin Extra 500 mg PO QDAY PRN 11/12/21 11/12/21 Unknown History Strength] Albuterol Sulfate [Proventil Hfa] 2 puff IH Q4H 11/12/21 11/12/21 Unknown History Aspirin EC [Halfprin EC] 81 mg PO QDAY 11/12/21 11/12/21 Unknown History B Complex W-C No.20/Folic Acid 1 mg PO QDAY 11/12/21 11/12/21 Unknown History [Nephrocaps Softgel] Cholecalciferol Vit D3 [Vitamin D3 1,000 unit PO QDAY 11/12/21 11/12/21 Unknown History 1,000 UNIT TAB] Dextran 70/Hypromellose [Natural 1 drop OU QDAY 11/12/21 11/12/21 Unknown History Balance Tears Eye Drop] Insulin Detemir [Levemir Flextouch] 17 - 20 unit SQ QDAY 11/12/21 11/12/21 Unknown History Trolamine Salicylate [Aspercreme] 1 applicatio TP QDAY 11/12/21 11/12/21 Unknown History Vitamin E 1,000 unit PO QDAY 11/12/21 11/12/21 Unknown History atenoloL [Tenormin] 50 mg PO DAILY 11/12/21 11/12/21 Unknown History Active Medications: Generic Name Dose Route Start Last Admin Trade Name Freq PRN Reason Stop Dose Admin Acetaminophen 650 mg 11/10/21 18:28 Acetaminophen 325 Mg Tab PO Q4H PRN Pain MILD(1-3)/Fever >100.5/NICHOLSON Albuterol 2.5 mg 11/10/21 18:28 Albuterol 2.5 Mg/3 Ml Nebu IH Q4HRT PRN Shortness Of Breath Atorvastatin Calcium 40 mg 11/10/21 22:00 11/11/21 21:12 Atorvastatin 40 Mg Tab PO 40 mg QHS OLMAN Administration Calcium Acetate 667 mg 11/11/21 08:00 11/11/21 09:08 Calcium Acetate 667 Mg Cap PO 667 mg DAILY@0800 OLMAN Administration Epoetin Aroldo-epbx 10,000 unit 11/10/21 23:19 Epoetin Aroldo-Epbx 10,000 Unit/1 Ml Vial IV NAEEM PRN hemodialysis Hydromorphone HCl 0.25 mg 11/10/21 18:28 Hydromorphone 1 Mg/1 Ml Inj IV Q4H PRN Pain, Moderate (4-6) Hydromorphone HCl 0.5 mg 11/10/21 18:28 11/11/21 00:20 Hydromorphone 1 Mg/1 Ml Inj IV 0.5 mg Q6H PRN Administration Pain , Severe (7-10) Metronidazole 500 mg in 100 mls @ 100 mls/hr 11/10/21 19:00 11/12/21 03:47 Flagyl 500 Mg/100 Ml IV 11/17/21 18:59 100 mls/hr Q8H OLMAN Administration Protocol Cefepime HCl 1 gm in 100 mls @ 200 mls/hr 11/10/21 20:00 11/11/21 20:50 Cefepime/Ns 1 Gm/100 Ml IV 11/16/21 23:59 200 mls/hr Q24H OLMAN Administration Sodium Chloride 100 mls @ 999 mls/hr 11/10/21 23:18 Nacl 0.9% IV NAEEM PRN Hypotension Isosorbide Mononitrate 60 mg 11/11/21 10:00 11/11/21 16:45 Isosorbide Mononitrate Er 60 Mg Tab PO Not Given QDAY OLMAN Morphine Sulfate 2 mg 11/10/21 18:28 Morphine 2 Mg/1 Ml Inj IV Q6H PRN Pain, Moderate (4-6) Nifedipine 60 mg 11/11/21 10:00 11/11/21 13:00 Nifedipine Xl 60 Mg Tab PO 60 mg QDAY OLMAN Administration Ondansetron HCl 4 mg 11/10/21 18:28 11/11/21 04:41 Ondansetron 4 Mg/2 Ml Inj IV 4 mg Q8H PRN Administration Nausea And Vomiting Pantoprazole Sodium 40 mg 11/12/21 08:00 Pantoprazole 40 Mg Tab PO BIDAC OLMAN Sodium Chloride 10 ml 11/10/21 22:00 11/11/21 21:12 Sodium Chloride 0.9% 10 Ml Flush Syringe IV 10 ml BID OLMAN Administration Sodium Chloride 10 ml 11/10/21 18:28 Sodium Chloride 0.9% 10 Ml Flush Syringe IV PRN PRN LINE FLUSH Vitamin B Complex/Vitamin C 1 each 11/11/21 10:00 11/11/21 09:08 B Complex W/Vitamin C Tab PO 1 each QDAY OLMAN Administration
--- NOTE | 2021-11-12 08:57 | Progress Note ---
Assessment and Plan Assessment and plan: 76 YO Female with HTN, GERD, HLD, ESRD on HD(T,R,Sa) presents ED for evaluation of GI bleed. Patient states that she has experienced crampy abdominal pain over the past 1 week with persistent and intermittent symptoms over the same timeframe. Patient also reports 2 episodes of blood in her stool over the past 1 week. The patient was seen and evaluated in the emergency department. All lab and imaging studies reviewed. Patient underwent CT scan of the abdomen and pelvis and was found to have evidence of acute diverticulitis complicated by sepsis. GI bleed Sepsis Acute diverticulitis ESRD Right kidney mass Ovarian dermoid cyst 11/11/2021. Patient will be continued on IV antibiotics. Await GI consultation. Patient reported rectal bleeding x1 last night. H&H remained stable. We will check renal ultrasound to further evaluate kidney mass. 11/12/2021. Follow-up renal ultrasound to evaluate kidney mass. Continue hemodialysis per nephrology recommendations. Transfuse for hemoglobin less than 7. Follow-up H&H. Continue liquid diet and advance as tolerated. Follow-up CBC and anticipate discharge in a.m. if leukocytosis resolved. History Interval history: No new issues Hospitalist Physical - Constitutional Vitals: Temp Pulse Resp BP Pulse Ox 98.4 F 65 18 150/41 100 11/12/21 04:14 11/12/21 04:14 11/12/21 04:14 11/12/21 04:14 11/12/21 07:00 General appearance: Present: no acute distress - EENT Eyes: Present: PERRL, EOM intact ENT: hearing intact, clear oral mucosa, dentition normal - Neck Neck: Present: supple, normal ROM - Respiratory Respiratory effort: normal Respiratory: bilateral: CTA - Cardiovascular Rhythm: regular Heart Sounds: Present: S1 & S2. Absent: gallop, rub - Extremities Extremities: no ischemia, No edema, Full ROM - Abdominal General gastrointestinal: soft, non-tender, non-distended, normal bowel sounds - Integumentary Integumentary: Present: clear, warm, dry - Neurologic Neurologic: CNII-XII intact, moves all extremities Results - Labs CBC & Chem 7: 11/11/21 07:28 11/11/21 07:22 Labs: Laboratory Last Values WBC 15.0 K/mm3 (4.5-11.0) H 11/11/21 07:28 RBC 2.70 M/mm3 (3.65-5.03) L 11/11/21 07:28 Hgb 8.5 gm/dl (10.1-14.3) L 11/11/21 07:28 Hct 24.9 % (30.3-42.9) L 11/11/21 07:28 MCV 92 fl (79-97) 11/11/21 07:28 MCH 31 pg (28-32) 11/11/21 07:28 MCHC 34 % (30-34) 11/11/21 07:28 RDW 19.5 % (13.2-15.2) H 11/11/21 07:28 Plt Count 158 K/mm3 (140-440) 11/11/21 07:28 [place] % (Auto) Drive Away Driver 11/11/21 07:28 Add Manual Diff Complete 11/11/21 07:28 Total Counted 100 11/11/21 07:28 Seg Neuts % (Manual) 69.0 % (40.0-70.0) 11/11/21 07:28 Band Neutrophils % 0 % 11/11/21 07:28 Lymphocytes % (Manual) 10.0 % (13.4-35.0) L 11/11/21 07:28 Reactive Lymphs % (Man) 0 % 11/11/21 07:28 Monocytes % (Manual) 19.0 % (0.0-7.3) H 11/11/21 07:28 Eosinophils % (Manual) 2.0 % (0.0-4.3) 11/11/21 07:28 Basophils % (Manual) 0 % (0.0-1.8) 11/11/21 07:28 Metamyelocytes % 0 % 11/11/21 07:28 Myelocytes % 0 % 11/11/21 07:28 Promyelocytes % 0 % 11/11/21 07:28 Blast Cells % 0 % 11/11/21 07:28 Nucleated RBC % Not Reportable 11/11/21 07:28 Seg Neutrophils # Man 10.4 K/mm3 (1.8-7.7) H 11/11/21 07:28 Band Neutrophils # 0.0 K/mm3 11/11/21 07:28 Lymphocytes # (Manual) 1.5 K/mm3 (1.2-5.4) 11/11/21 07:28 Abs React Lymphs (Man) 0.0 K/mm3 11/11/21 07:28 Monocytes # (Manual) 2.9 K/mm3 (0.0-0.8) H 11/11/21 07:28 Eosinophils # (Manual) 0.3 K/mm3 (0.0-0.4) 11/11/21 07:28 Basophils # (Manual) 0.0 K/mm3 (0.0-0.1) 11/11/21 07:28 Metamyelocytes # 0.0 K/mm3 11/11/21 07:28 Myelocytes # 0.0 K/mm3 11/11/21 07:28 Promyelocytes # 0.0 K/mm3 11/11/21 07:28 Blast Cells # 0.0 K/mm3 11/11/21 07:28 WBC Morphology Not Reportable 11/11/21 07:28 Hypersegmented Neuts Not Reportable 11/11/21 07:28 Hyposegmented Neuts Not Reportable 11/11/21 07:28 Hypogranular Neuts Not Reportable 11/11/21 07:28 Smudge Cells Not Reportable 11/11/21 07:28 Toxic Granulation Not Reportable 11/11/21 07:28 Toxic Vacuolation Not Reportable 11/11/21 07:28 Dohle Bodies Not Reportable 11/11/21 07:28 Pelger-Huet Anomaly Not Reportable 11/11/21 07:28 Caitie Rods Not Reportable 11/11/21 07:28 Platelet Estimate Consistent w auto 11/11/21 07:28 Clumped Platelets Not Reportable 11/11/21 07:28 Plt Clumps, EDTA Not Reportable 11/11/21 07:28 Large Platelets Not Reportable 11/11/21 07:28 Giant Platelets Not Reportable 11/11/21 07:28 Platelet Satelliting Not Reportable 11/11/21 07:28 Plt Morphology Comment Not Reportable 11/11/21 07:28 RBC Morphology Not Reportable 11/11/21 07:28 Dimorphic RBCs Not Reportable 11/11/21 07:28 Polychromasia Not Reportable 11/11/21 07:28 Hypochromasia Not Reportable 11/11/21 07:28 Poikilocytosis Not Reportable 11/11/21 07:28 Anisocytosis 1+ 11/11/21 07:28 Microcytosis Not Reportable 11/11/21 07:28 Macrocytosis Not Reportable 11/11/21 07:28 Spherocytes Not Reportable 11/11/21 07:28 Pappenheimer Bodies Not Reportable 11/11/21 07:28 Sickle Cells Not Reportable 11/11/21 07:28 Target Cells Not Reportable 11/11/21 07:28 Tear Drop Cells Not Reportable 11/11/21 07:28 Ovalocytes Not Reportable 11/11/21 07:28 Helmet Cells Not Reportable 11/11/21 07:28 [place] Bodies Not Reportable 11/11/21 07:28 [place] Rings Not Reportable 11/11/21 07:28 [place] Cells Not Reportable 11/11/21 07:28 Bite Cells Not Reportable 11/11/21 07:28 Crenated Cell Not Reportable 11/11/21 07:28 Elliptocytes Not Reportable 11/11/21 07:28 Acanthocytes (Spur) Not Reportable 11/11/21 07:28 Rouleaux Not Reportable 11/11/21 07:28 Hemoglobin C Crystals Not Reportable 11/11/21 07:28 Schistocytes Not Reportable 11/11/21 07:28 Malaria parasites Not Reportable 11/11/21 07:28 Jorge Bodies Not Reportable 11/11/21 07:28 Hem Pathologist Commnt No 11/11/21 07:28 PT 13.8 Sec. (12.2-14.9) 11/10/21 15:36 INR 0.96 (0.87-1.13) 11/10/21 15:36 APTT 38.8 Sec. (24.2-36.6) H 11/10/21 15:36 Sodium 136 mmol/L (137-145) L 11/11/21 07:22 Potassium 4.2 mmol/L (3.6-5.0) 11/11/21 07:22 Chloride 94.0 mmol/L (98-107) L 11/11/21 07:22 Carbon Dioxide 27 mmol/L (22-30) 11/11/21 07:22 Anion Gap 19 mmol/L 11/11/21 07:22 BUN 43 mg/dL (7-17) H 11/11/21 07:22 Creatinine 9.4 mg/dL (0.6-1.2) H 11/11/21 07:22 Estimated GFR 5 ml/min 11/11/21 07:22 BUN/Creatinine Ratio 5 % 11/11/21 07:22 Glucose 118 mg/dL (65-100) H 11/11/21 07:22 POC Glucose 101 mg/dL (70-105) 11/12/21 07:27 Lactic Acid 0.70 mmol/L (0.7-2.0) 11/11/21 07:29 Calcium 9.8 mg/dL (8.4-10.2) 11/11/21 07:22 Total Bilirubin 0.50 mg/dL (0.1-1.2) 11/10/21 15:36 AST 17 units/L (5-40) 11/10/21 15:36 ALT 12 units/L (7-56) 11/10/21 15:36 Alkaline Phosphatase 102 units/L (35-129) 11/10/21 15:36 Total Protein 7.1 g/dL (6.3-8.2) 11/10/21 15:36 Albumin 4.6 g/dL (3.9-5) 11/10/21 15:36 Albumin/Globulin Ratio 1.8 % 11/10/21 15:36 Hepatitis A IgM Ab Non-reactive (NonReactive) 11/11/21 07:45 Hep Bs Antigen Non-reactive (Negative) 11/11/21 07:45 Hep B Core IgM Ab Non-reactive (NonReactive) 11/11/21 07:45 Hepatitis C Antibody Non-reactive (NonReactive) 11/11/21 07:45 Blood Type O POSITIVE 11/10/21 15:36 Antibody Screen Positive 11/10/21 15:36 MOLLY Antibody Screen Negative 11/10/21 15:36 Antibody Identification Negative 11/10/21 15:36 Direct Antiglob Test Positive 11/10/21 15:36 KATHLEEN, Poly Interpret Positive 11/10/21 15:36 Microbiology: Microbiology 11/10/21 21:18 Peripheral/Venous Blood Culture - Preliminary NO GROWTH AFTER 24 HOURS 11/10/21 21:18 Peripheral/Venous Blood Culture - Preliminary NO GROWTH AFTER 24 HOURS [place]/IV: Voiding Method Toilet Active Medications - Current Medications Current Medications: Generic Name Dose Route Start Last Admin Trade Name Freq PRN Reason Stop Dose Admin Acetaminophen 650 mg 11/10/21 18:28 Acetaminophen 325 Mg Tab PO Q4H PRN Pain MILD(1-3)/Fever >100.5/NICHOLSON Albuterol 2.5 mg 11/10/21 18:28 Albuterol 2.5 Mg/3 Ml Nebu IH Q4HRT PRN Shortness Of Breath Atorvastatin Calcium 40 mg 11/10/21 22:00 11/11/21 21:12 Atorvastatin 40 Mg Tab PO 40 mg QHS OLMAN Administration Calcium Acetate 667 mg 11/11/21 08:00 11/11/21 09:08 Calcium Acetate 667 Mg Cap PO 667 mg DAILY@0800 [facility] Administration Epoetin Aroldo-epbx 10,000 unit 11/10/21 23:19 Epoetin Aroldo-Epbx 10,000 Unit/1 Ml Vial IV NAEEM PRN hemodialysis Hydromorphone HCl 0.25 mg 11/10/21 18:28 Hydromorphone 1 Mg/1 Ml Inj IV Q4H PRN Pain, Moderate (4-6) Hydromorphone HCl 0.5 mg 11/10/21 18:28 11/11/21 00:20 Hydromorphone 1 Mg/1 Ml Inj IV 0.5 mg Q6H PRN Administration Pain , Severe (7-10) Metronidazole 500 mg in 100 mls @ 100 mls/hr 11/10/21 19:00 11/12/21 03:47 Flagyl 500 Mg/100 Ml IV 11/17/21 18:59 100 mls/hr Q8H OLMAN Administration Protocol Cefepime HCl 1 gm in 100 mls @ 200 mls/hr 11/10/21 20:00 11/11/21 20:50 Cefepime/Ns 1 Gm/100 Ml IV 11/16/21 23:59 200 mls/hr Q24H OLMAN Administration Sodium Chloride 100 mls @ 999 mls/hr 11/10/21 23:18 Nacl 0.9% IV NAEEM PRN Hypotension Isosorbide Mononitrate 60 mg 11/11/21 10:00 11/11/21 16:45 Isosorbide Mononitrate Er 60 Mg Tab PO Not Given QDAY [facility] Morphine Sulfate 2 mg 11/10/21 18:28 Morphine 2 Mg/1 Ml Inj IV Q6H PRN Pain, Moderate (4-6) Nifedipine 60 mg 11/11/21 10:00 11/11/21 13:00 Nifedipine Xl 60 Mg Tab PO 60 mg QDAY OLMAN Administration Ondansetron HCl 4 mg 11/10/21 18:28 11/11/21 04:41 Ondansetron 4 Mg/2 Ml Inj IV 4 mg Q8H PRN Administration Nausea And Vomiting Pantoprazole Sodium 40 mg 11/12/21 08:00 Pantoprazole 40 Mg Tab PO BIDAC OLMAN Sodium Chloride 10 ml 11/10/21 22:00 11/11/21 21:12 Sodium Chloride 0.9% 10 Ml Flush Syringe IV 10 ml BID OLMAN Administration Sodium Chloride 10 ml 11/10/21 18:28 Sodium Chloride 0.9% 10 Ml Flush Syringe IV PRN PRN LINE FLUSH Vitamin B Complex/Vitamin C 1 each 11/11/21 10:00 11/11/21 09:08 B Complex W/Vitamin C Tab PO 1 each QDAY OLMAN Administration Nutrition/Malnutrition Assess - Dietary Evaluation Nutrition/Malnutrition Findings: Nutrition Notes Start: 11/11/21 11:54 Freq: Status: Active Protocol: Document 11/11/21 11:54 GREGOR (Rec: 11/11/21 12:09 GREGOR [id number]) Nutrition Notes Need for Assessment generated from: grocery worker,MST Initial or Follow up Assessment Current Diagnosis CKD (stage V CKD),Sepsis, Hypertension,Hyperlipidemia Other Pertinent Diagnosis Acute Diverticulitis, GI Bleed , Anemia, ESRD+HD, GERD. Current Diet NPO (since 11/10 18:31). Labs/Tests 11/11: Na 136, Cl 94.0, BUN 43 , Crea 9.4, Glu 118. Pertinent Medications 11/11: Vit B, Vit C, Phoslo, others nutritionally unremarkable. Height 5 ft 7 in Weight 68.039 kg [place] Body Weight (kg) 61.36 BMI 23.5 Intake Prior to Admission Good Weight change and time frame Pt states being unsure if loss body weight CAN CAPPER. Weight Status Appropriate Subjective/Other Information RD consult for risk of malnutrition assessmenmt. Pt currently on NPO. Pt shows no signs of concern for risk of malnutrition at the time, according to Physical Assessment History notes. Pt presents diarrhea episodes, some with with blood, according to Physical Assessment History notes. Percent of energy/protein needs met: Pt currently on NPO. Burn Absent Trauma Absent GI Symptoms Diarrhea,Other Food Allergy No Skin Integrity/Comment Assessment WNL. Current % PO Other Minimum of two criteria No #1 Nutrition Diagnosis Altered GI function Etiology Acute Diverticulitis. As Evidenced by Signs and Symptoms GI Bleed. Is patient on ventilator? No Is Patient Ambulatory and/or Out of Bed Yes REE-([place]-St. Jeor-ambulatory/OOB) [ 1570.426 NUTR.MSJOOB] Kcal/Kg value to use for calculation 25 Approximate Energy Requirements Using 1701 kcal/Kg Calculation Used for Recommendations Kcal/kg Additional Notes Protein: 1-1.2 g/Kg ABW; 68-82 g/day. Fluids: 1 ml/Kcal, or as per MD. Nutrition Intervention Change Diet Order: When pertinent, advance to Clear Liquids Diet at tolerated. Goal #1 Facilitate PO intake of meals with mechanical modification during LOS. Goal #2 Maintain body weight within +/ -3% of admission body weight during LOS. Follow-Up By: 11/13/21 Additional Comments When pertinent, start monitoring food tolerance, %PO intake of meals, and BM.
[2021-11-12] MEDS: NIFEdipine XL 60 MG TAB PO SCH (09:35)
[2021-11-12] MEDS: CALCIUM ACETATE 667 MG CAP PO SCH (09:35)
--- NOTE | 2021-11-12 09:45 | Ultrasound Report ---
ULTRASOUND RENAL INDICATION / CLINICAL INFORMATION: kidney mass. COMPARISON: CT abdomen pelvis without contrast 11/10/2021. FINDINGS: RIGHT KIDNEY: Length = 7.7 cm. [normal > 9 cm] - Parenchymal Thickness = 0.8 cm. [normal > 1.5 cm] - Echogenicity: Increased - Hydronephrosis: None. - Cyst or mass: A 1.8 cm cyst is identified near mid pole which correlates with the ill-defined hypod ense lesion seen on noncontrast CT. No solid mass is detected. There is also a 1.3 cm cyst at the low er pole. - Stones: None seen. LEFT KIDNEY: Length = 7.6 cm. [normal > 9 cm] - Parenchymal Thickness = 1.4 cm. [normal > 1.5 cm] - Echogenicity: Normal. - Hydronephrosis: None. - Cyst or mass: No significant abnormality. - Stones: None seen. URINARY BLADDER: The bladder is empty and poorly evaluated. FREE FLUID: None. ADDITIONAL FINDINGS: None. IMPRESSION: Atrophic and echogenic kidneys consistent with chronic renal parenchymal disease. There are 2 cysts in the right kidney as described above. No solid renal mass is detected. See above. Signer Name: Oneil Macias Jr, MD Signed: 11/12/2021 9:40 AM Workstation Name: [id number]
--- NOTE | 2021-11-12 12:33 | Gastroenterology Progress Note ---
Assessment and Plan # Acute sigmoid diverticulitis - CT on 11/10/2021 showed acute uncomplicated diverticulitis. - wbc trending down from 17 to 15. No labs today. ordered cbc - clinically improving. - cont with empiric antibiotics. - advance diet. - ok for discharge per GI standpoint once tolerating diet and pain controlled. Will sign off. please call as needed. Subjective Date of service: 11/12/21 Interval history: Pain improving but not resolved. Tolerated clear liquid. Objective - Constitutional Vitals: Temp Pulse Resp BP Pulse Ox 98.4 F 65 18 150/41 100 11/12/21 04:14 11/12/21 04:14 11/12/21 04:14 11/12/21 04:14 11/12/21 07:00 General appearance: no acute distress - EENT Eyes: EOM intact ENT: hearing intact - Respiratory Respiratory effort: normal - Cardiovascular Rhythm: regular Heart Sounds: Present: S1 & S2 - Gastrointestinal General gastrointestinal: Present: soft, tender, non-distended, normal bowel sounds - Integumentary Integumentary: Present: clear, warm - Neurologic Neurological: alert and oriented x3 - Labs CBC & Chem 7: 11/11/21 07:28 11/11/21 07:22 Labs: Laboratory Results - last 24 hr 11/11/21 11/11/21 11/12/21 17:32 22:48 07:27 POC Glucose 126 H 121 H 101 11/12/21 11:23 POC Glucose 122 H
--- NOTE | 2021-11-12 14:44 | Discharge Summary ---
Providers - Providers Date of Admission: 11/10/21 18:28 Date of discharge: 11/12/21 Attending physician: HEATHER PRITCHETT 11/10/21 17:42 Consult to Physician [CONS] Urgent Comment: Consulting Provider: NELY HILL Physician Instructions: Reason For Exam: esrd 11/11/21 08:50 Consult to Physician [CONS] Routine Comment: Consulting Provider: ASIF DONOHUE Physician Instructions: Reason For Exam: GIB, diverticulitis 11/11/21 21:49 Physical Therapy Evaluation and Treat [CONS] Routine Comment: Reason For Exam: gait and balance , home safety 11/11/21 21:52 Occupational Therapy Evaluate and Treat [CONS] Routine Comment: Reason For Exam: eval Primary care physician: SWIMMING INSTRUCTOR Hospitalization Reason for admission: abd pain Condition: Stable Hospital course: 76 YO Female with HTN, GERD, HLD, ESRD on HD(T,R,Sa) presents ED for evaluation of GI bleed. Patient states that she has experienced crampy abdominal pain over the past 1 week with persistent and intermittent symptoms over the same timeframe. Patient also reports 2 episodes of blood in her stool over the past 1 week. The patient was seen and evaluated in the emergency department. All lab and imaging studies reviewed. Patient underwent CT scan of the abdomen and pelvis and was found to have evidence of acute sigmoid diverticulitis complicated by sepsis. Hospital course: 11/11/2021. Patient will be continued on IV antibiotics. Await GI consultation. Patient reported rectal bleeding x1 last night. H&H remained stable. We will check renal ultrasound to further evaluate kidney mass. 11/12/2021. Follow-up renal ultrasound to evaluate kidney mass. Continue hemodialysis per nephrology recommendations. Transfuse for hemoglobin less than 7. Follow-up H&H. GI feels the patient can discharge home now that patient is tolerating diet and pain better controlled. We will check WBC and if leukocytosis improved patient will discharge home today. Renal ultrasound did not reveal evidence of a renal mass. Dedicated discharge time 35 minutes Disposition: 30 STILL A PATIENT Final Discharge Diagnosis (Prints w/discharge instructions): Acute uncomplicated sigmoid diverticulitis, sepsis, abdominal pain, ESRD Core Measure Documentation - Palliative Care Palliative Care/ Comfort Measures: Not Applicable - Core Measures Any of the following diagnoses?: none Exam - Constitutional Vitals: Temp Pulse Resp BP Pulse Ox 98.4 F 65 18 150/41 100 11/12/21 04:14 11/12/21 04:14 11/12/21 04:14 11/12/21 04:14 11/12/21 07:00 General appearance: Present: no acute distress, well-nourished - EENT Eyes: Present: PERRL ENT: hearing intact, clear oral mucosa - Neck Neck: Present: supple, normal ROM - Respiratory Respiratory effort: normal Respiratory: bilateral: CTA - Cardiovascular Heart Sounds: Present: S1 & S2. Absent: rub, click - Extremities Extremities: pulses symmetrical, No edema Peripheral Pulses: within normal limits - Abdominal General gastrointestinal: Present: soft, non-tender, non-distended, normal bowel sounds Female genitourinary: Present: normal - Integumentary Integumentary: Present: clear, warm, dry - Musculoskeletal Musculoskeletal: gait normal, strength equal bilaterally - Psychiatric Psychiatric: appropriate mood/affect, intact judgment & insight - Neurologic Neurologic: CNII-XII intact, moves all extremities Plan Activity: advance as tolerated Weight Bearing Status: Weight Bear as Tolerated Diet: regular Follow up with: PEGGY PAIGE MD [Primary Care Provider] - 3-5 Days MIN,JUAN CARLOS WOLF MD [Staff Physician] - 7 Days Forms: Accompanied Note Prescriptions: metroNIDAZOLE [Flagyl] 500 mg PO Q8HR #21 tablet
== END 2021-11-12 16:58 | disposition home health service (06) | DRG 871 ==
LOC: ED 14:52 → 3A 18:28
PROVIDERS: ADMIT Internal Medicine; ATTEND Hospitalist
PROC: 5A1D70Z Performance of Urinary Filtration, Intermittent, Less than 6 Hours Per Day (ICD-10-PCS; principal; 2021-11-11)
DX: A41.9 Sepsis, unspecified organism (principal); N18.6 End stage renal disease; K57.33 Diverticulitis of large intestine without perforation or abscess with bleeding; N25.81 Secondary hyperparathyroidism of renal origin; I13.2 Hypertensive heart and chronic kidney disease with heart failure and with stage 5 chronic kidney disease, or end stage renal disease; D50.0 Iron deficiency anemia secondary to blood loss (chronic); D27.9 Benign neoplasm of unspecified ovary; Z20.822 Contact with and (suspected) exposure to COVID-19; J44.9 Chronic obstructive pulmonary disease, unspecified; E78.5 Hyperlipidemia, unspecified; K21.9 Gastro-esophageal reflux disease without esophagitis; D63.1 Anemia in chronic kidney disease; I50.9 Heart failure, unspecified; Z82.49 Family history of ischemic heart disease and other diseases of the circulatory system
CPT/HCPCS: 36415; 74176; 76770; 80048; 80053; 80074; 82140; 82270; 82962; 85007; 85025; 85610; 85730; 86850; 86870; 86880; 86900; 86901; 87040; G0378; J3490; J7517; C9113; J0692; J1170; J2405

== ENCOUNTER 2022-04-07 10:42 | Outpatient (CLI) | payer MEDICARE ==
[2022-04-07 11:10] LABS: Hematocrit 23.8 % (30.3-42.9); Hemoglobin 8.3 gm/dl (10.1-14.3)
== END 2022-04-07 10:43 | disposition home or self-care (01) ==
LOC: LAB 10:42
PROVIDERS: ATTEND Internal Medicine Nephrology
DX: N18.6 End stage renal disease (principal); Z99.2 Dependence on renal dialysis
CPT/HCPCS: 36415; 85014; 85018